=== PATIENT | male | born 1950 | race Caucasian/White ===

== ENCOUNTER → 2016-08-10 | Outpatient (CLI) | payer OTHER ==
--- NOTE | 2016-08-10 10:25 | US ---
Ultrasound of the Abdomen Complete History: Pancreatitis. Abdominal pain. Findings: Gallbladder: No shadowing calculi, wall thickening, or pericholecystic fluid. Common bile duct is 3 m m in diameter which is normal. The gallbladder wall is 1.7 mm Liver: Homogeneous in echogenicity and measures 16.3 cm in length. No definite focal lesions. Renal: Right kidney measures 4.9 x 4.8 x 11.3 cm with a 1.1 cm cortex cm and left kidney 5.1 x 5.2 x 11.7 cm with a 1.7 cm cortex cm without hydronephrosis in either kidney. Multiple cysts are present in the right kidney. A mid cyst measures 4.8 x 3.5 x 4.0 cm. Second mid cy st measures 2.3 x 1.9 x 2.1 cm. A lateral cyst measures 1.1 x 0.9 x 1.0 cm. In the left kidney there is a perinephric cyst measuring 1.5 x 1.3 x 1.1 cm. Spleen: Homogeneous and 3.6 x 8.7 x 10.9 cm cm in length without splenomegaly. Pancreas: Homogeneous without peripancreatic fluid. Aorta: Visualized upper abdominal aorta demonstrates no aneurysm. 20 to 15 mm with some atherosclerot ic disease IVC: Grossly patent. Impression: 1. Poor visualization of the pancreas due to overlying bowel gas. 2. Atherosclerosis of the aorta without evidence of aneurysm. 3. incidental benign renal cysts.
== END ==
LOC: CIMAGING 08:37
PROVIDERS: ATTEND Physician Assistant Medical
DX: R11.2 Nausea with vomiting, unspecified (principal); R10.9 Unspecified abdominal pain; I70.0 Atherosclerosis of aorta; N28.1 Cyst of kidney, acquired
CPT/HCPCS: 76700-PO

== ENCOUNTER → 2016-08-16 | Outpatient (CLI) | payer OTHER ==
[~2016-08-16] MED LIST: IOPAMIDOL (ISOVUE 370) 100 ML BTL IV ONE
--- NOTE | 2016-08-16 16:12 | CT ---
CT Scan of the Abdomen, Without and With Contrast Enhancement History: Epigastric abdominal pain. Technique: Axial computed tomographic images of the abdomen were obtained prior to and during the une ventful intravenous administration of 90 mL Isovue-300 contrast. Additional oral contrast. Dose red uction techniques were utilized. CT Abdomen, Without Contrast, Findings: In the upper pole right kidney, there is a calyceal 7-mm omar cification on image #82 of series #3, without hydronephrosis. No left nephrolithiasis. Surgical cli ps in the right upper quadrant of the abdomen and involving the body of the stomach probably represen ting partial gastrectomy in the antrum region. CT Abdomen, With Contrast, Findings Lung bases: No pleural effusion. Mild cardiomegaly. Clips surrounding the distal esophagus, withou t hiatal hernia. Liver: No hepatic masses or hepatomegaly. Biliary system: No obstruction. Spleen: Normal. Pancreas: Multiple pancreatic calcifications probably from chronic pancreatitis. No definite focal pancreatic mass or peripancreatic fluid. No pancreatic ductal dilation. Peripancreatic lymph node, measuring 2.2 x 1 cm, on image #73 of series #5. Atrophy of the pancreatic head, without discrete ma ss. Adrenals: Normal. Kidneys: Bilateral renal cysts identified, with the largest in the posterior cortex of the right kid kole interpolar region, measuring 5 cm.. Abdominal Aorta: Moderate atherosclerotic abdominal aorta and iliac artery calcifications, without a neurysm. AP diameter of the infrarenal abdominal aorta is 2.5 cm. Oral contrast in the small bowel and colon, without bowel obstruction. Pelvis not imaged. Ileocecal region appears normal. Appendix is not identified. Multilevel moderate degenerative disk disease lumbar spine. L3-L4: Disk bulge and bilateral facet a rthropathy resulting in severe central canal stenosis. L4-L5: Large central disk herniation, extrus ion, causing severe stenosis. Impressions 1. Prior gastric surgery, with partial gastric resection. No gastric outlet obstruction, small vadim l obstruction, or colonic obstruction. No evidence of inflammatory bowel disease in the mid to upper abdomen. 2. Pancreatic calcifications consistent with chronic pancreatitis, with atrophic pancreatic head but no discrete mass. 3. No hepatosplenomegaly, ascites, or hepatic masses. 4. Nonobstructive right nephrolithiasis, with bilateral renal cysts. 5. Atherosclerotic aorta, without aneurysm. Cosigned: Kalin Ward M.D.
== END ==
LOC: CIMAGING 14:10
PROVIDERS: ATTEND Internal Medicine Gastroenterology
DX: K86.89 Other specified diseases of pancreas (principal); I70.0 Atherosclerosis of aorta; Z98.84 Bariatric surgery status
CPT/HCPCS: 74170; Q9967

== ENCOUNTER → 2016-09-15 | Outpatient (CLI) | payer OTHER | LOC: BHFA 11:15 | PROVIDERS: ATTEND Internal Medicine Cardiovascular Disease | DX: I25.810 Atherosclerosis of coronary artery bypass graft(s) without angina pectoris (principal); I10 Essential (primary) hypertension; E78.5 Hyperlipidemia, unspecified; E11.9 Type 2 diabetes mellitus without complications ==

== ENCOUNTER → 2016-09-17 | Outpatient (CLI) | payer OTHER | LOC: BHFA 13:00 | PROVIDERS: ATTEND Internal Medicine Cardiovascular Disease | DX: I25.10 Atherosclerotic heart disease of native coronary artery without angina pectoris (principal) | CPT/HCPCS: 78452; 93017; A9500 ==

== ENCOUNTER 2016-09-27 11:28 | Observation (INO) | payer OTHER ==
[2016-09-27] MEDS ORDERED: NS 1,000 ML IV ONE (11:33)
[2016-09-27] MEDS ORDERED: FAMOTIDINE 20 MG TAB PO ONE (11:33)
[2016-09-27] MEDS ORDERED: DIAZEPAM 5 MG TAB PO ONE (11:33)
[2016-09-27] MEDS ORDERED: ASPIRIN EC 325 MG TAB PO ONE (11:33)
[2016-09-27] MEDS ORDERED: diphenhydrAMINE 25 MG CAP PO ONE (11:33)
--- NOTE | 2016-09-27 12:01 | CPEKG ---
Heart Rate: 49 RR Interval: 1224 P-R Interval: 236 QRSD Interval: 86 QT Interval: 464 QTC Interval: 419 P [place]: -9 QRS [place]: 28 T Wave [place]: 99 EKG Severity - ABNORMAL ECG - EKG Impression: SINUS BRADYCARDIA EKG Impression: FIRST DEGREE AV BLOCK EKG Impression: NONSPECIFIC T ABNORMALITIES, LATERAL LEADS Preliminary Awaiting MD Review
[2016-09-27 12:15] LABS: % IMMATURE GRANULYOCYTES 0.2 % (0.0-1.1); ABSOLUTE IMMATURE GRANULOCYTES 0.02 10^3/uL (0.00-0.10); ADD DIFF? NO; ADD MORPH? NO; ADD SCAN? NO; ATYPICAL LYMPHOCYTE FLAG 10 (0-99); FRAGMENT RBC FLAG 20 (0-99); HEMATOCRIT 36.5 % (40.0-51.0); HEMOGLOBIN 11.6 g/dL (13.7-17.5); LEFT SHIFT FLG 0 (0-99); LIPEMIA HEMOLYSIS FLAG 80 (0-99); MEAN CELL HEMOGLOBIN 25.4 pg (27.9-34.1); MEAN CELL HEMOGLOBIN CONCENTR. 31.8 g/dL (32.4-36.7); MEAN PLATELET VOLUME 9.7 fL (8.7-11.7); PLATELET CLUMPS FLAG 0 (0-99); PLATELET COUNT 208 10^3/uL (150-400); RED BLOOD CELL COUNT 4.56 10^6/uL (4.40-6.38); RED CELL DISTRIBUTION WIDTH 16.6 % (11.5-15.2)
[2016-09-27 12:30] LABS: INR 1.03 (0.83-1.16); PROTIME(PATIENT) 13.4 SEC (12.0-15.0)
[2016-09-27 12:36] LABS: ANION GAP 10 mEq/L (8-16); CALCIUM 9.4 mg/dL (8.5-10.4); CARBON DIOXIDE 24 mEq/l (22-31); CHLORIDE 106 mEq/L (97-110); CHOLESTEROL 176 mg/dL (140-220); CHOLESTEROL/HDL RATIO 3.83 RATIO (1.00-4.97); CREATININE 0.7 mg/dL (0.7-1.3); GLOMERULAR FILTRATION RATE > 60; GLUCOSE 121 mg/dL (70-100); HIGH DENSITY LIPOPROTEIN 46 mg/dL (40-65); LDL/HDL RATIO 2.17 RATIO (1.00-3.64); LOW DENSITY LIPOPROTEIN 100 mg/dL (80-100); MAGNESIUM 1.9 mg/dL (1.6-2.3); NON-HIGH DENSITY LIPOPROTEIN 130 mg/dL (90-129); POTASSIUM 4.7 mEq/L (3.5-5.2); SODIUM 140 mEq/L (134-144); TRIGLYCERIDE 153 mg/dL (40-150); VERY LOW DENSITY LIPOPROTEINS 30 mg/dL (8-25)
[2016-09-27] MEDS ORDERED: MIDAZOLAM 2 MG/2 ML VIAL ONE ×2 (13:25→14:30)
[2016-09-27] MEDS ORDERED: LIDOCAINE 1% 30 ML SDV ONE (13:25)
[2016-09-27] MEDS ORDERED: fentaNYL 100 MCG/2 ML INJ ONE ×2 (13:25→14:30)
[2016-09-27] MEDS ORDERED: VERAPAMIL 5 MG/2 ML VIAL ONE ×2 (13:26→14:32)
[2016-09-27] MEDS ORDERED: IOPAMIDOL (ISOVUE-370) 150 ML BTL IV ONE ×2 (13:26→18:00)
[2016-09-27] MEDS ORDERED: HEPARIN 10,000 UNIT/10 ML MDV ONE (13:26)
--- NOTE | 2016-09-27 15:11 | PDDXCAT ---
Diagnostic Cath Note - . Date: 09/27/16 Bobbin Sorter: Ayanna Indication: other (Preoperative assessment prior to colon surgery.) High-risk criteria on non-invasive testing: stress-induced moderate-size multiple perfusion defects - Procedure Access: right groin Procedure: left heart catheterization, coronary angiography, left ventriculogram - Materials Left Heart Cath materials: standard multipack (JL4, JR4, pigtail), NATASHA, other ( RCB) - Findings-Left Heart Catheterization LM: The left main is a large caliber vessel. There is appropriate bifurcation into the left anterior descending and circumflex distributions. The left main is heavily calcified. There is distal stenosis of 30%. LAD: The left anterior descending is small and diffusely disease. The vessel is occluded after the 1st septal ct tech and grafted from the right internal mammary artery. The distal LAD filling from the right internal mammary artery is widely patent with no obstructions however small caliber and diffusely diseased. LCX: The circumflex is small in caliber and diffusely disease. There are 2 small obtuse marginal branches. The 1st obtuse marginal branch is grafted from the left internal mammary artery. Retrograde opacification of the MURPHY is appreciated. The proximal portion of the circumflex is diseased up to 80% in a long diffuse segment. Injection of the left internal mammary artery fills the obtuse marginal branch retrograde. RCA: The right coronary artery is proximally occluded. This vessel is grafted with a saphenous vein graft. Injection of the saphenous vein graft fills the right coronary artery via the PDA retrograde to the point of occlusion. This demonstrates a large right coronary artery territory. rSVG: There is a saphenous vein graft to the right coronary artery. This vessel is large in caliber and patent with no obstructive lesions. The distal anastomosis into the PDA with retrograde filling of the [place] right back to the point of occlusion in the proximal vessel. There is also a saphenous vein graft which is a skip graft between the 1st 2 diagonal branches. This vessel is widely patent with no obstructive lesions. There is no significant retrograde opacification of the LAD via either of these diagonal branches. MURPHY: The left internal mammary artery is grafted into the obtuse marginal branch. This vessel is widely patent throughout its course. SAM: The right internal mammary artery is grafted into the mid LAD. This vessel is widely patent throughout its course. There is a stent in the distal segment. The stent is widely patent. The distal LAD is small in caliber and diffusely diseased. EDP: 23 mmHg. LVEF: The left ventricular ejection fraction is 60-65%. There are no focal wall motion abnormalities. - Findings-Right Heart Catheterization AO: 151/74/107 mmHg. Complications: None. Estimated blood loss: <50ml Closure method: manual pressure Assessment: 1. Severe [place] coronary artery disease as described above. 2. Patent left internal mammary artery graft to the obtuse marginal, right internal mammary artery graft to the middle LAD, SVG to the right coronary artery (PDA) and an SVG to the 1st and 2nd diagonal branches. The patient previously had a stent in the distal portion of the MURPHY to the LAD that is currently widely patent. 3. Preserved left ventricular systolic function without significant wall motion abnormalities. 4. No identified significant valvular heart disease. 5. Mildly elevated end-diastolic pressure. Plan: Medical management. Intervention: None.
[2016-09-27] MEDS ORDERED: ATROPINE SULFATE 1 MG/10 ML SYR ONE (16:11)
[2016-09-27] MEDS ORDERED: ONDANSETRON 4 MG/2 ML VIAL IVP PRN (18:06)
[2016-09-27] MEDS ORDERED: ATROPINE SULFATE 1 MG/10 ML SYR IVP PRN (18:06)
[2016-09-27] MEDS ORDERED: HYDROCODONE/APAP 5/325 TAB PO PRN (18:06)
[2016-09-27] MEDS ORDERED: NITROGLYCERIN 0.4 MG BTL SL PRN (18:06)
[2016-09-27] MEDS ORDERED: OXYCODONE/APAP 5/325 TAB PO PRN (18:52)
[2016-09-27 19:39] VITALS: BP 163/94; PULSE 52; RESP 18; TEMP 98.7; O2SAT 97
[2016-09-27] MEDS ORDERED: morphINE SR 15 MG TAB PO SCH (20:00)
== END 2016-09-27 22:17 | disposition home or self-care (01) ==
LOC: FCATH 11:28 → F2W 15:27
PROVIDERS: ADMIT Internal Medicine Cardiovascular Disease; ATTEND Internal Medicine Cardiovascular Disease
PROC: B2151ZZ Fluoroscopy of Left Heart using Low Osmolar Contrast (ICD-10-PCS; principal; 2016-09-27)
PROC: B21F1ZZ Fluoroscopy of Other Bypass Graft using Low Osmolar Contrast (ICD-10-PCS; principal; 2016-09-27)
PROC: B2171ZZ Fluoroscopy of Right Internal Mammary Bypass Graft using Low Osmolar Contrast (ICD-10-PCS; principal; 2016-09-27)
PROC: 4A023N7 Measurement of Cardiac Sampling and Pressure, Left Heart, Percutaneous Approach (ICD-10-PCS; principal; 2016-09-27)
PROC: B2181ZZ Fluoroscopy of Left Internal Mammary Bypass Graft using Low Osmolar Contrast (ICD-10-PCS; principal; 2016-09-27)
PROC: B2111ZZ Fluoroscopy of Multiple Coronary Arteries using Low Osmolar Contrast (ICD-10-PCS; principal; 2016-09-27)
DX: Z01.810 Encounter for preprocedural cardiovascular examination (principal); K63.9 Disease of intestine, unspecified; I25.10 Atherosclerotic heart disease of native coronary artery without angina pectoris; I10 Essential (primary) hypertension; E78.5 Hyperlipidemia, unspecified; E11.9 Type 2 diabetes mellitus without complications; Z95.1 Presence of aortocoronary bypass graft; Z95.5 Presence of coronary angioplasty implant and graft
CPT/HCPCS: 71020; 93005; 93459; C1769; J1644; J2250; J3010; Q9967; J0461

== ENCOUNTER 2016-10-21 04:50 | Inpatient (IN) | payer OTHER ==
[2016-10-21] MEDS ORDERED: cefOXitin SODIUM 1 GM in D5W 50 ML IV ONE (06:00)
[2016-10-21] MEDS ORDERED: LR 1,000 ML IV ONE (06:18)
[2016-10-21 06:28] LABS: INR 0.99 (0.83-1.16)
[2016-10-21] MEDS ORDERED: BUPIVACAINE 0.5% 30 ML SDV ONE (06:41)
[2016-10-21] MEDS ORDERED: HEPARIN 1000 UNIT/1 ML MDV ONE ×2 (06:41→06:50)
[2016-10-21] MEDS ORDERED: ceFAZolin 1 GM/5 ML SYR ONE (06:42)
[2016-10-21] MEDS ORDERED: LIDOCAINE 1% 5 ML SDV ID PRN (06:46)
[2016-10-21] MEDS ORDERED: METOPROLOL TARTRATE 25 MG TAB PO ONE (07:00)
[2016-10-21] MEDS ORDERED: NALOXONE HCL 0.4 MG/ML INJ IVP PRN (07:17)
[2016-10-21] MEDS ORDERED: MIDAZOLAM 2 MG/2 ML VIAL ONE (07:18)
[2016-10-21] MEDS ORDERED: fentaNYL 250 MCG/5 ML INJ ONE ×2 (07:32→07:51)
[2016-10-21] MEDS ORDERED: PROPOFOL 200 MG/20 ML VIAL ONE (07:34)
[2016-10-21] MEDS ORDERED: PROPOFOL/EMULSION 500 MG/50 ML BOTTLE IV ONE (07:34)
[2016-10-21] MEDS ORDERED: LIDOCAINE 2% 5 ML SDV ONE (07:59)
[2016-10-21] MEDS ORDERED: ROCURONIUM 100 MG/10 ML VIAL ONE (07:59)
[2016-10-21] MEDS ORDERED: PHENYLEPHRINE HCL 100 MCG/ML SYR ONE (07:59)
[2016-10-21] MEDS ORDERED: DEXAMETHASONE 4 MG/ML VIAL ONE (08:09)
[2016-10-21] MEDS ORDERED: GLYCOPYRROLATE 0.2 MG/1 ML VIAL ONE (08:09)
[2016-10-21] MEDS ORDERED: ONDANSETRON 4 MG/2 ML VIAL ONE (09:11)
[2016-10-21] MEDS ORDERED: HYDROmorphONE/DILAUDID 1 MG/ML SYR ONE ×2 (09:41→10:31)
--- NOTE | 2016-10-21 09:45 | POSTOPPROG ---
Post Op Note Date of Operation: 10/21/16 Surgeon: Joe Warren Instrumental Music Teacher: Austin Thakkar PA-C, DAE Deleon MS, Maulik Gomez MS Anesthesiologist: Christiano JAIMES Anesthesia: GET(General Endotracheal) Pre-op Diagnosis: adenoma in ascending colon Post-op Diagnosis: same Indication: suspicious polyp Procedure: lap right hemicolectomy Findings: polyp in ascending colon Inf/Abcess present in the surg proc area at time of surgery?: No EBL: Minimal Complications: none Specimen(s): segment of colon (fresh) to path
[2016-10-21] MEDS ORDERED: NON-FORMULARY NEW DRUG (Atorvastatin Calcium [Lipitor 80 Mg] 80 MG) PO SCH (11:15)
[2016-10-21] MEDS ORDERED: D50W 25 GM/50 ML SYR IVP PRN (11:18)
[2016-10-21] MEDS: morphINE PCA 30 MG/30 ML PCA IV PRN ×2 (11:31→20:17)
[2016-10-21] MEDS: morphINE SR 15 MG TAB PO SCH ×2 (12:14→23:55)
[2016-10-21] MEDS: cefOXitin SODIUM 1 GM in D5W 50 ML IV SCH ×3 (12:21→23:55)
[2016-10-21] MEDS: ONDANSETRON 4 MG/2 ML VIAL IVP PRN ×2 (15:15→19:31)
[2016-10-21] MEDS ORDERED: NON-FORMULARY NEW DRUG (Ropinirole Hcl [Requip 0.5mg] 0.5 MG) PO SCH (21:00)
[2016-10-21] MEDS: NS 1,000 ML IV SCH (21:22)
[2016-10-22] MEDS: cefOXitin SODIUM 1 GM in D5W 50 ML IV SCH (05:16)
[2016-10-22 05:27] LABS: % IMMATURE GRANULYOCYTES 0.3 % (0.0-1.1); ABSOLUTE IMMATURE GRANULOCYTES 0.03 10^3/uL (0.00-0.10); ADD DIFF? NO; ADD MORPH? NO; ADD SCAN? NO; ATYPICAL LYMPHOCYTE FLAG 0 (0-99); FRAGMENT RBC FLAG 0 (0-99); HEMATOCRIT 28.9 % (40.0-51.0); HEMOGLOBIN 9.1 g/dL (13.7-17.5); LEFT SHIFT FLG 0 (0-99); LIPEMIA HEMOLYSIS FLAG 80 (0-99); MEAN CELL HEMOGLOBIN 25.2 pg (27.9-34.1); MEAN CELL HEMOGLOBIN CONCENTR. 31.5 g/dL (32.4-36.7); MEAN CELL VOLUME 80.1 fL (81.5-99.8); MEAN PLATELET VOLUME 10.8 fL (8.7-11.7); PLATELET CLUMPS FLAG 0 (0-99); PLATELET COUNT 176 10^3/uL (150-400); RED BLOOD CELL COUNT 3.61 10^6/uL (4.40-6.38); RED CELL DISTRIBUTION WIDTH 16.2 % (11.5-15.2)
[2016-10-22 05:33] LABS: CALCIUM 8.3 mg/dL (8.5-10.4); CARBON DIOXIDE 23 mEq/l (22-31); CHLORIDE 107 mEq/L (97-110); CREATININE 0.7 mg/dL (0.7-1.3); GLOMERULAR FILTRATION RATE > 60; GLUCOSE 102 mg/dL (70-100); SODIUM 138 mEq/L (134-144)
[2016-10-22 06:14] LABS: ANION GAP 8 mEq/L (8-16); POTASSIUM 4.6 mEq/L (3.5-5.2)
[2016-10-22] MEDS: ONDANSETRON 4 MG/2 ML VIAL IVP PRN (06:39)
[2016-10-22] MEDS: morphINE PCA 30 MG/30 ML PCA IV PRN (07:46)
[2016-10-22] MEDS: NS 1,000 ML IV SCH (07:46)
[2016-10-22] MEDS: ATORVASTATIN CALCIUM 40 MG TAB PO SCH (07:51)
[2016-10-22] MEDS: LISINOPRIL 5 MG TAB PO SCH (07:52)
[2016-10-22] MEDS: METOPROLOL TARTRATE 25 MG TAB PO SCH ×2 (07:52→20:45)
[2016-10-22] MEDS: CITALOPRAM 20 MG TAB PO SCH (07:53)
--- NOTE | 2016-10-22 13:25 | SOAPPROG ---
SOAP Progress Note Assessment/Plan: Assessment: 65-year-old male s/p lap right hemicolectomy, POD 1 Pain well controlled. Was able to pass gas this morning. King catheter was removed around 6:00 a.m. Denies fever, nausea, vomiting. PE Awake, alert, comfortable CTA bilaterally RRR Abdomen soft, nondistended ; incision CDI with no signs of infection or drainage Plan: Continue postop wound care. Encourage ambulation. Started on clears this morning. If tolerated, may advance diet to regular diet this afternoon. Anticipate discharge. To follow up with our office in 10 days. 10/22/16 13:15 Objective: Vital Signs Temp Pulse Resp BP Pulse Ox 36.8 C 57 L 16 92/55 L 90 L 10/22/16 11:59 10/22/16 11:59 10/22/16 11:59 10/22/16 11:59 10/22/16 11:59 Laboratory Results 10/22/16 04:31 10/22/16 04:31 10/21/16 10/22/16 10/23/16 05:59 05:59 05:59 Intake Total 3352 Output Total 1485 Balance 1867 PT 13.0 SEC (12.0-15.0) 10/21/16 06:15 INR 0.99 (0.83-1.16) 10/21/16 06:15
[2016-10-22] MEDS: morphINE SR 15 MG TAB PO SCH (14:22)
[2016-10-22] MEDS: oxyCODONE IR 5 MG TAB PO PRN ×2 (16:46→19:02)
[2016-10-22] MEDS: IBUPROFEN 200 MG TAB PO PRN (20:45)
[2016-10-22] MEDS: HYDROmorphONE/DILAUDID 1 MG/ML SYR IVP PRN (21:41)
[2016-10-23] MEDS: morphINE SR 15 MG TAB PO SCH ×3 (00:06→21:28)
[2016-10-23] MEDS: oxyCODONE IR 5 MG TAB PO PRN ×4 (00:09→22:35)
[2016-10-23] MEDS: ACETAMINOPHEN 325 MG TAB PO PRN ×3 (00:10→21:27)
--- NOTE | 2016-10-23 08:28 | SOAPPROG ---
SOAP Progress Note Assessment/Plan: Assessment: doing well status post right hemicolectomy / wound okay/ urine output OK/ afebrile / positive flatus and positive BM Plan: advanced diet 10/23/16 08:25 Objective: Vital Signs Temp Pulse Resp BP Pulse Ox 36.6 C 61 14 114/63 96 10/23/16 07:48 10/23/16 07:48 10/23/16 07:48 10/23/16 07:48 10/23/16 07:48 Laboratory Results 10/22/16 04:31 10/22/16 04:31 10/22/16 10/23/16 10/24/16 05:59 05:59 05:59 Intake Total 3352 740 500 Output Total 1485 900 650 Balance 1867 -160 -150 PT 13.0 SEC (12.0-15.0) 10/21/16 06:15 INR 0.99 (0.83-1.16) 10/21/16 06:15 ICD10 Worksheet Patient Problems: Problems Problem Status Onset Polyp of cecum Acute - ICD10 Problem Qualifiers (1) Polyp of cecum
[2016-10-23] MEDS: HYDROmorphONE/DILAUDID 1 MG/ML SYR IVP PRN ×4 (09:46→21:26)
[2016-10-23] MEDS: ATORVASTATIN CALCIUM 40 MG TAB PO SCH (09:49)
[2016-10-23] MEDS: METOPROLOL TARTRATE 25 MG TAB PO SCH ×2 (09:49→21:28)
[2016-10-23] MEDS: LISINOPRIL 5 MG TAB PO SCH (09:50)
[2016-10-23] MEDS: CITALOPRAM 20 MG TAB PO SCH (09:51)
[2016-10-23] MEDS: IBUPROFEN 200 MG TAB PO PRN ×2 (12:00→21:27)
[2016-10-23] MEDS ORDERED: KETOROLAC 30 MG/1 ML SDV IVP ONE (17:00)
[2016-10-23] MEDS ORDERED: NS 1,000 ML IV ONE (17:00)
--- NOTE | 2016-10-23 19:05 | GOP ---
[f rep st] OPERATIVE REPORT DATE OF OPERATION: 10/21/2016 SURGEON: Joe Warren MD FORMING PRESS OPERATOR: KIMMY Alegria. PREOPERATIVE DIAGNOSIS: POSTOPERATIVE DIAGNOSIS: PROCEDURE PERFORMED: Laparoscopic right hemicolectomy. FINDINGS: Patient was found have a large amount of adhesions from his previous gastrectomy surgery. He had a 4 cm polyp in the cecum with no evidence of any metastatic disease. Final path is pendin g. ESTIMATED BLOOD LOSS: Blood loss was negligible. DESCRIPTION OF PROCEDURE: Patient was taken to the operating room where he received satisfactory ge neral endotracheal anesthesia by Dr. Alvarado. He was placed in the supine position, prepped and drap ed in the usual sterile fashion. A lower abdominal midline incision was made. A lower abdominal in cision was made, a Veress needle inserted. Pneumoperitoneum was established. Trocar was introduced . Laparoscope introduced. Good visualization was obtained. Two other trocars were placed under di rect vision. Adhesions were lysed. The cecum was mobilized by dividing the lateral peritoneal refl ection and up around the splenic flexure until the right colon was more mobile. The terminal ileum was also freed up with the Harmonic Scalpel. The right mesocolon was divided with the Harmonic Scal pel. After adequate mobilization, a periumbilical incision was made using one of the trocar sites. The wound was protected with an Sudheer wound protector, and the right colon was brought out through the incision, which had been extended down through the linea alba. The terminal ileum was divided with a MARVIN stapler, as was the right transverse colon. The mesenteric division was completed with t he Harmonic Scalpel and the specimen was then removed. A [id number] anastomosis was made with a G IA stapler and a cross application of the stapler. The suture lines were reinforced with interrupte d 3-0 silks where necessary. This created a good 3-fingerbreadth anastomosis. The bowel was return ed back into the abdomen and the wound was irrigated. Hemostasis was assured. The abdomen was then closed in layers using a running #1 PDS suture for the linea alba, a 3-0 Vicryl for the subcu, 4-0 Monocryl subcuticular stitch for the skin. The other trocar sites were closed with 4-0 Monocryl as well. All layers were infiltrated with Marcaine. There were no complications. He tolerated proced ure well and was taken to the recovery room in good condition. Copy requested to: /[id number]/BERTRAND
[2016-10-23] MEDS: KETOROLAC 15 MG/1 ML SDV IVP PRN (22:35)
[2016-10-24 07:46] VITALS: BP 122/68; PULSE 57; RESP 14; TEMP 97.7
[2016-10-24] MEDS: morphINE SR 15 MG TAB PO SCH (08:11)
[2016-10-24] MEDS: ATORVASTATIN CALCIUM 40 MG TAB PO SCH (08:11)
[2016-10-24] MEDS: CITALOPRAM 20 MG TAB PO SCH (08:11)
[2016-10-24] MEDS: LISINOPRIL 5 MG TAB PO SCH (08:16)
[2016-10-24] MEDS: METOPROLOL TARTRATE 25 MG TAB PO SCH (08:16)
[2016-10-24] MEDS: oxyCODONE IR 5 MG TAB PO PRN (10:06)
[2016-10-24] MEDS: KETOROLAC 15 MG/1 ML SDV IVP PRN (10:06)
--- NOTE | 2016-10-24 10:16 | SOAPPROG ---
SOAP Progress Note Assessment/Plan: Assessment: s/p right hemicolectomy Doing well Flatus and BM Ready for discharge S: Pain controlled, no n/v. Flatus and BM O: Sitting in chair, appears well CTAB RRR BS present Soft non tender and non distended. Incisions cdi Plan: 10/24/16 10:15 Objective: Vital Signs Temp Pulse Resp BP Pulse Ox 36.5 C 57 L 14 122/68 H 100 10/24/16 07:29 10/24/16 07:29 10/24/16 07:29 10/24/16 07:29 10/24/16 07:29 Laboratory Results 10/22/16 04:31 10/22/16 04:31 10/23/16 10/24/16 10/25/16 05:59 05:59 05:59 Intake Total 740 500 Output Total 900 1750 475 Balance -160 -1250 -475 PT 13.0 SEC (12.0-15.0) 10/21/16 06:15 INR 0.99 (0.83-1.16) 10/21/16 06:15 ICD10 Worksheet Patient Problems: Problems Problem Status Onset Polyp of cecum Acute
--- NOTE | 2016-10-24 10:31 | PDIAF ---
- Diagnosis Diagnosis: s/p right hemicolectomy Code Status: Full Code - Medication Management Discharge Medications: Medications to Continue on Transfer Atorvastatin Calcium [Lipitor 80 mg] 80 mg PO DAILY 01/16/13 [Last Taken ] Citalopram [celeXA 20 MG (RX)] 20 mg PO DAILY 01/16/13 [Last Taken 10/15/16] Hydrocodone/Acetaminophen [Supai 7.5-325 Tablet] 1 tab PO Q4 PRN 01/16/13 [Last Taken 10/15/16] Metoprolol Tartrate [Lopressor 25 mg (*)] 25 mg PO BID 01/16/13 [Last Taken ] Aspirin [Aspirin 325 mg (*)] 325 mg PO DAILY 09/27/16 [Last Taken 10/15/16] Linagliptin [Tradjenta] 5 mg PO DAILY 09/27/16 [Last Taken 10/15/16] Lipase/Protease/Amylase [Eduarda Mason 36,000 Units Capsule] 1 each PO TIDMEAL [Last Taken 10/18/16] Metformin HCl [Metformin 1000 mg] 1,000 mg PO BIDMEAL 09/27/16 [Last Taken 10/18] Ondansetron Odt [Zofran Odt 4 mg (*)] 4 mg PO Q6H PRN 09/27/16 [Last Taken 10/14] morphINE SR [Ms Contin/Oramorph 15 mg (*)] 15 mg PO Q12H 09/27/16 [Last Taken ] Lisinopril [Zestril 5 mg (*)] 2.5 mg PO DAILY 10/13/16 [Last Taken 10/15/16] Ropinirole HCl [Requip 0.5mg] 0.5 mg PO HS 10/13/16 [Last Taken 10/15/16] Acetaminophen [Tylenol 325mg (*)] 325 - 650 mg PO Q4HRS PRN #0 tab 10/24/16 [ Last Taken Unknown] Ibuprofen [Motrin (*)] 400 - 800 mg PO Q4HRS PRN #0 tab 10/24/16 [Last Taken Unknown] oxyCODONE IR [Oxycodone Ir (*)] 5 mg PO Q3HRS PRN #40 tab 10/24/16 [Last Taken Unknown] Discharge Medications: Refer to the Discharge Home Medication list for PRN reason. - Orders Services needed: Registered Nurse, Physical Therapy, Occupational Therapy Home Care Face to Face: I saw Alden Taylor on 10/24/2016 and he requires in home PT,OT and RN Diet Recommendation: low fiber Wound Care Instructions: may shower without covering wounds. Dr. Warren or one of his PAs will see him in 1 week - Follow Up Care Current Providers and Referrals: Joe Warren MD [Medical Doctor] - follow up in 1 week Diallo Ng DO [Primary Care Provider] -
[2016-10-24 10:37] VITALS: O2SAT 92
[2016-10-24] MEDS: ACETAMINOPHEN 325 MG TAB PO PRN (11:30)
--- NOTE | 2016-10-25 21:27 | GDS ---
[f rep st] DISCHARGE SUMMARY REASON FOR ADMISSION: Elective surgery for a colon mass. HOSPITAL COURSE: The patient is a very pleasant 65-year-old male who was noted to have a right colo n mass upon screening colonoscopy. The patient underwent right hemicolectomy with Dr. Warren on 09/24. His hospital course was fairly unremarkable, as he regained bowel function fairly quickly, and was discharged on 10/24/2016. Pathology is still pending from that surgery at the time of this dictation. Patient instructed to follow up in our office in 10 days. No heavy lifting, okay to shower. /[id number]/MODL
== END 2016-10-24 12:06 | disposition home health service (06) | DRG 331 ==
LOC: F3E 04:50
PROVIDERS: ADMIT Surgery; ATTEND Surgery
PROC: 0DBK4ZX Excision of Ascending Colon, Percutaneous Endoscopic Approach, Diagnostic (ICD-10-PCS; principal; 2016-10-21 07:15)
PROC: 0DTC4ZZ Resection of Ileocecal Valve, Percutaneous Endoscopic Approach (ICD-10-PCS; principal; 2016-10-21 07:15)
PROC: 0DBB4ZX Excision of Ileum, Percutaneous Endoscopic Approach, Diagnostic (ICD-10-PCS; principal; 2016-10-21 07:15)
PROC: 0DTH4ZZ Resection of Cecum, Percutaneous Endoscopic Approach (ICD-10-PCS; principal; 2016-10-21 07:15)
DX: D12.0 Benign neoplasm of cecum (principal); I25.10 Atherosclerotic heart disease of native coronary artery without angina pectoris; I10 Essential (primary) hypertension; E11.9 Type 2 diabetes mellitus without complications; E78.5 Hyperlipidemia, unspecified; Z95.1 Presence of aortocoronary bypass graft; Z95.5 Presence of coronary angioplasty implant and graft
CPT/HCPCS: J0697; J1100; J1170; J1885; J2250; J2270; J2370; J2405; J2704; J3010

== ENCOUNTER 2018-02-15 09:11 | Inpatient (IN) | payer OTHER ==
--- NOTE | 2018-02-15 09:42 | EDPHY ---
General - History Smoking Status: Former smoker Time Seen by Provider: 02/15/18 09:38 Narrative: CHIEF COMPLAINT: Back pain, foot pain HISTORY OF PRESENT ILLNESS: Patient presents with complaints of increasing low back pain and significant pain in the dorsum of the right foot. He was admitted here on February 09 for the same, where he underwent pain medications, epidural steroid injections. Discharged on Tuesday doing well until yesterday. His pain began to increase as did the tingling in the right foot. He now has severe, 10/10 pain in the back and in the top of the right foot. He is unable to ambulate from this. He feels weak in the right leg. He has no incontinence of bowel or bladder. No retention of bowel or bladder. No fever. No signs of infection of the low back skin. No headache, neck pain, chest pain or shortness of breath. He has been seen by Neurosurgery here in as an appointment next Tuesday with neurosurgery KIMMY. No other associated complaints or modifying factors REVIEW OF SYSTEMS: Ten systems reviewed and are negative unless otherwise noted in the HPI PAST MEDICAL HISTORY: Coronary artery disease, hypertension, lumbar degenerative disc disease and stenosis PAST SURGICAL HISTORY: Lumbar washout, CABG, stent placement, left shoulder rotator cuff repair SOCIAL HISTORY: Nonsmoker. Lives independently with his spouse. FAMILY HISTORY: Noncontributory EXAMINATION General Appearance: Alert, no distress. Appears to be uncomfortable but in no acute distress HEENT: Normocephalic. Atraumatic pupils equal round reactive. Airway patent. Neck: Supple nontender without meningismus per Cardiovascular: Symmetric radial pulses 2+. Symmetric DP PT pulses 2+. Back: Normal appearance. There is no crepitus or deformity. There is significant tenderness of the lumbar spine musculature and centrally. Neurological: GCS 15. A&O, light sensory is symmetric in the thighs, lateral catheterization, posterior calf, plantar surface of the feet. Hyperesthesia of the dorsum of the right foot. No foot drop on the right lower extremity Skin: Warm and dry, no rash no petechiae or purpura. No cellulitis or fluctuance on the lumbar skin. Extremities: Tenderness out of proportion to palpation of the dorsum of the right foot. Unable to perform full range of motion of the right ankle due to pain. Range of motion of the hips and knees symmetric. DIFFERENTIAL DIAGNOSES: Including but not limited to lumbar stenosis, lumbar radiculopathy, disc bulge, disc herniation, diskitis, myelitis MDM: 9:45 a.m. Intractable low back pain with right foot paresthesia and hyperesthesia of the dorsum of the foot. Patient's pain is severe enough that he has difficulty ambulating due to pain and reported weakness. Unable to perform full strength testing in the lower extremity due to significant pain in the dorsum of the foot. Patellar reflexes are symmetric. He is afebrile well-appearing otherwise. I discussed with Dr. Jin and will consult Neurosurgery. 10:10 a.m. Case discussed with neurosurgery PA Blayne aMnriquez. He will discuss the case with Dr. Staley 10:20 a.m. Case discussed again with neurosurgery PA. He recommends admission the hospital for pain control they will consult on the patient. 10:40 a.m. Case discussed with hospitalist Lexi Adkins. Patient be admitted to Dr. Christensen. Admitted stable condition. She is requesting baseline laboratory studies and sed rate 11:40 a.m. CBC does reveal mild leukocytosis. Clinically I do not feel the patient has any evidence of diskitis this was considered. He has been admitted in stable condition with pain improving with recurrent pain medications here. SUPERVISION: Patient was independently examined, but I discussed the case with my secondary supervising physician Dr. Jin ([facility]) Medical Decision Making: PHYSICIAN DOCUMENTATION: The patient was evaluated and managed by the Physician Lunchroom Operator. My co- signature indicates that I have reviewed this chart and I agree with the findings and plan of care as documented. I am the secondary supervising physician. (German Jin) - Objective Vital Signs: Initial Vital Signs Temperature (C) 36.9 C 02/15/18 09:34 Heart Rate 59 L 02/15/18 09:34 Respiratory Rate 18 02/15/18 09:34 Blood Pressure 126/97 H 02/15/18 09:34 O2 Sat (%) 96 02/15/18 09:34 O2 Delivery Mode Room Air Allergies/Adverse Reactions: codeine [Codeine] Allergy (Mild, Verified 02/08/18 10:57) Vomiting diphenhydramine HCl [From Benadryl] Allergy (Mild, Verified 02/08/18 10:57) Other-Enter Comments Home Medications: Medication Instructions Recorded Atorvastatin Calcium [Lipitor 80 80 mg PO DAILY 01/16/13 mg] Hydrocodone/Acetaminophen [Chandler 1 tab PO Q6HRS PRN 01/16/13 7.5-325 Tablet] Aspirin [Aspirin 325 mg (*)] 325 mg PO DAILY 09/27/16 Linagliptin [Tradjenta] 5 mg PO DAILY 09/27/16 Metformin HCl [Metformin 1000 mg] 1,000 mg PO BIDMEAL 09/27/16 morphINE SR [Ms Contin/Oramorph 15 15 mg PO Q12H 09/27/16 mg (*)] Lisinopril [Zestril 5 mg (*)] 5 mg PO DAILY 10/13/16 Ropinirole HCl [Requip 0.5mg] 1 mg PO HS 10/13/16 Citalopram Hydrobromide [Celexa] 40 mg PO DAILY 02/08/18 Empagliflozin [Jardiance] 10 mg PO DAILY 02/08/18 Pregabalin [Lyrica 75mg (*)] 75 mg PO BID 02/08/18 Gabapentin [Neurontin 300 MG (*)] 300 mg PO TID #30 cap 02/12/18 Metoprolol Tartrate [Lopressor 25 25 mg PO BID 02/15/18 mg (*)] Sennosides/Docusate Sodium 1 - 2 tab PO BID PRN 02/15/18 [Senokot-S] Laboratory Results: Laboratory Results 02/15/18 10:11 02/15/18 10:11 02/15/18 02/15/18 02/15/18 10:11 10:11 10:11 WBC 11.95 10^3/uL H 10^3/uL (3.80-9.50) RBC 5.07 10^6/uL 10^6/uL (4.40-6.38) Hgb 14.3 g/dL g/dL (13.7-17.5) Hct 43.6 % % (40.0-51.0) MCV 86.0 fL fL (81.5-99.8) MCH 28.2 pg pg (27.9-34.1) MCHC 32.8 g/dL g/dL (32.4-36.7) RDW 13.4 % % (11.5-15.2) Plt Count 220 10^3/uL 10^3/uL (150-400) MPV 10.3 fL fL (8.7-11.7) Neut % (Auto) 71.9 % % (39.3-74.2) Lymph % (Auto) 16.9 % % (15.0-45.0) [place] % (Auto) 7.5 % % (4.5-13.0) Eos % (Auto) 0.8 % % (0.6-7.6) Baso % (Auto) 0.4 % % (0.3-1.7) Nucleat RBC Rel Count 0.0 % % (0.0-0.2) Absolute Neuts (auto) 8.58 10^3/uL H 10^3/uL (1.70-6.50) Absolute Lymphs (auto) 2.02 10^3/uL 10^3/uL (1.00-3.00) Absolute Monos (auto) 0.90 10^3/uL H 10^3/uL (0.30-0.80) Absolute Eos (auto) 0.10 10^3/uL 10^3/uL (0.03-0.40) Absolute Basos (auto) 0.05 10^3/uL 10^3/uL (0.02-0.10) Absolute Nucleated RBC 0.00 10^3/uL 10^3/uL (0-0.01) Immature Gran % 2.5 % H % (0.0-1.1) Immature Gran # 0.30 10^3/uL H 10^3/uL (0.00-0.10) ESR 4 MM/HR MM/HR (0-20) PT 13.2 SEC SEC (12.0-15.0) INR 0.98 (0.83-1.16) APTT 29.4 SEC SEC (23.0-38.0) Sodium 140 mEq/L mEq/L (135-145) Potassium 4.7 mEq/L mEq/L (3.3-5.0) Chloride 104 mEq/L mEq/L (97-110) Carbon Dioxide 27 mEq/l mEq/l (22-31) Anion Gap 9 mEq/L mEq/L (8-16) BUN 21 mg/dL mg/dL (7-23) Creatinine 0.8 mg/dL mg/dL (0.7-1.3) Estimated GFR > 60 Glucose 106 mg/dL H mg/dL (70-100) Calcium 9.7 mg/dL mg/dL (8.5-10.4) Medications Given: Discontinued Medications Hydromorphone HCl (Dilaudid) 0.5 mg IVP EDNOW ONE Stop: 02/15/18 10:45 Last Admin: 02/15/18 10:52 Dose: 0.5 mg Hydromorphone HCl (Dilaudid) 1 mg IVP EDNOW ONE Stop: 02/15/18 12:22 Last Admin: 02/15/18 12:25 Dose: 1 mg Sodium Chloride (Ns) 1,000 mls @ 0 mls/hr IV EDNOW ONE; Wide Open PRN Reason: Protocol Stop: 02/15/18 09:51 Last Admin: 02/15/18 10:09 Dose: 1,000 mls Morphine Sulfate (Morphine) 6 mg IVP EDNOW ONE Stop: 02/15/18 09:51 Last Admin: 02/15/18 10:10 Dose: 6 mg Departure - Departure Disposition: [facility] Inpatient Acute Clinical Impression: Intractable low back pain, Herniation of lumbar intervertebral disc with radiculopathy Lumbar stenosis Qualifiers: Neurogenic claudication status: unspecified Qualified Code(s): M48.061 - Spinal stenosis, lumbar region without neurogenic claudication Condition: Good
[2018-02-15] MEDS ORDERED: NS 1,000 ML IV ONE (09:50)
[2018-02-15] MEDS ORDERED: HYDROmorphONE/DILAUDID 2 MG/ML INJ IVP ONE (10:44)
[2018-02-15 10:47] LABS: PLATELET COUNT 220 10^3/uL (150-400)
[2018-02-15 10:55] LABS: INR 0.98 (0.83-1.16); PROTIME(PATIENT) 13.2 SEC (12.0-15.0)
[2018-02-15] MEDS ORDERED: HYDROmorphONE/DILAUDID 1 MG/ML INJ IVP ONE (12:21)
[2018-02-15] MEDS ORDERED: ONDANSETRON DISINTEGRATING 4 MG TAB PO PRN (13:55)
[2018-02-15] MEDS ORDERED: ACETAMINOPHEN 325 MG TAB PO PRN (13:55)
[2018-02-15] MEDS ORDERED: ONDANSETRON 4 MG/2 ML VIAL IVP PRN (13:55)
[2018-02-15] MEDS ORDERED: D50W 25 GM/50 ML SYR IVP PRN (14:06)
[2018-02-15] MEDS: oxyCODONE IR 5 MG TAB PO PRN ×3 (14:20→22:48)
[2018-02-15] MEDS: GABAPENTIN 300 MG CAP PO SCH ×3 (14:21→21:33)
[2018-02-15] MEDS: DIAZEPAM 5 MG TAB PO PRN ×2 (14:21→21:42)
[2018-02-15] MEDS: morphINE SR 15 MG TAB PO SCH (14:22)
--- NOTE | 2018-02-15 14:56 | GHP ---
[f rep st] HISTORY AND PHYSICAL DATE OF ADMISSION: 02/15/2018 HISTORY OF PRESENT ILLNESS: Patient is a 67-year-old gentleman with a history of coronary artery dis ease and low back pain. He was recently hospitalized including an L4-L5 disk protrusion with central canal stenosis and neuroforaminal narrowing. He was seen here, admitted and discharged on the . He underwent an epidural steroid injection and nerve block with apparent initial good outcome. He returns with ongoing pain. He has not had bowel or bladder incontinence. He has pain on his right l ateral leg. He has burning pain on the dorsum of his foot. He has not had fever or chills. He does not use injection drugs. He has not had chest pain or other anginal-type symptoms. He had a coronary bypass more than 10 year s ago. He says he is really not able to bend over or stoop without significant pain. REVIEW OF SYSTEMS: Complete 10-point review of systems conducted, negative except as noted in the HP I. PAST MEDICAL HISTORY: 1. Coronary artery bypass in 2006. 2. History of diskitis with washout that was secondary to Staphylococcus aureus. 3. Hyperlipidemia. 4. Hypertension. 5. Chronic pain, on continuous narcotics. 6. History of peptic ulcer disease, status post partial gastrectomy. 7. Shoulder surgery to rotator cuff. 8. Colon surgery. 9. He had a stent placed in 1 of his vein grafts. FAMILY HISTORY: Only child. SOCIAL HISTORY: No tobacco, no alcohol. He is retired in the secondary to low back pain. 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 ALLERGIES: Codeine and Benadryl. HOME MEDICATIONS: Aspirin, gabapentin, [place], metformin, atorvastatin, citalopram, empagliflozin, li nagliptin, lisinopril, metoprolol, MS Contin, pregabalin, ropinirole, senna docusate. PHYSICAL EXAMINATION: PRESENTING VITAL SIGNS: Temp 37, blood pressure 126/97, pulse 50s, breathing 18 times a minute, 96% on room air. GENERAL: No acute distress, uncomfortable, HEENT: Sclerae anic teric. Oropharynx clear. Mucous membranes moist. NECK: Supple without lymphadenopathy or JVD. DORON NGS: Clear to auscultation bilaterally. HEART: S1, S2. ABDOMEN: Soft, nontender, nondistended. LOWER EXTREMITIES: Without edema. Calves nontender. SKIN: Without rash. NEUROLOGIC: Exam shows weakness with dorsiflexion and plantar flexion of the right foot. He is limited by pain. He does no t have decreased sensation. LABS: White count 12, hematocrit 44, platelets are 220,000. INR is 1. Sodium 140, potassium 4.7, c hloride 104, bicarb 27, BUN 21, creatinine 0.8, glucose 106. There is no imaging. I have discussed the case with Neurosurgery as well as Dr. Parish Jin in the em ergency department. There was an MRI performed on 02/08/2018, which I described in the HPI. ASSESSMENT AND PLAN: A 67-year-old gentleman with L4-L5 disk protrusion with significant symptoms re fractory to epidural steroid injection. 1. Low back pain. I will provide medical management with Neurontin, Valium, and oxycodone. He has been seen by Neurosurgery. It sounds like he may be a candidate for surgical management of this. He does not have any progressive neurologic findings other than perhaps dorsiflexion. It seems to be m ore pain dominated than weakness dominated. 2. Coronary artery disease. The patient has done well since his bypass and represents no medical co ntraindication to surgery. He does not require further workup. I have, at this point in time, held his aspirin given the likely need for upcoming neurosurgery. Will continue his beta ruth. 3. Hyperkalemia. He had hyperkalemia during a previous admission. Beta ruth dose is decreased. This appears to have resolved. 4. Diabetes. Will continue his oral medications minus metformin and follow. I will put him on a sl iding scale. 5. Prophylaxis. Pharmacologic prophylaxis indicated; however, given the need for surgery, will proc eed with SCDs. 6. Disposition: Inpatient status. /[id number]/MODL
--- NOTE | 2018-02-15 15:01 | GCON ---
[f rep st] CONSULTATION NEUROSURGICAL CONSULTATION CHIEF COMPLAINT: Right lower extremity pain and burning in the foot. SUBJECTIVE: The patient is a pleasant 67-year-old male, with a long history of low back pain, who wa s seen last week in the [facility] Emergency Department for severe back pain and was subsequently admitted and underwent right L3-L4 and L4-L5 transforaminal epidural steroid injections and selective nerve root blocks, and was discharged home last Tuesday. Unfortunately, those injecti ons provided zero relief for the patient. The patient has been dealing with pain since Tuesday of , and today brought himself back to the emergency department secondary to an acute increase in his pain, particularly from the knee down on his right side, with severe burning pain in the top of t he right foot that has been worsening over the past several days. Patient denies any bowel or bladde r incontinence, though he has fallen twice over the past several days. He underwent a lumbar MRI at [facility] on February 08, which demonstrates multilevel mild to moderate degenerative changes, with severe degenerative disk disease and a right-sided L4-L5 disk bulge/protrusion contribu ting to moderate acquired central canal stenosis, and moderately stenotic bilateral foraminal stenosi s. Also noted are widened facet joints at the L4-L5 level. The patient has previously tried physical therapy, epidural steroid injections, activity modification , and medications with no long-lasting pain relief. ALLERGIES: 1. Codeine. 2. Benadryl. HOME MEDICATIONS: 1. Aspirin 325 mg p.o. daily; last dose on 02/14/2018. 2. Lipitor 80 mg p.o. daily. 3. Celexa 40 mg p.o. daily. 4. Jardiance 10 mg p.o. daily. 5. Gabapentin 300 mg p.o. three times daily. 6. [place] 7.5-325 one p.o. q.6 hours p.r.n. pain. 7. Tradjenta 5 mg tablet p.o. daily. 8. Zestril 5 mg p.o. daily. 9. Metformin 1000 mg p.o. twice daily with meals. 10. Lopressor 25 mg p.o. twice daily. 11. Morphine SR 15 mg tablets p.o. q.12 hours. 12. Lyrica 75 mg p.o. twice daily. 13. Requip 0.5 mg p.o. at bedtime. 14. Senokot 1-2 p.o. twice daily. PAST SURGICAL HISTORY: Stomach ulcer repair, right shoulder repair, colon repair, back surgery for s taph infection which was treated with several weeks of IV antibiotics, 5-vessel coronary artery bypas s, and 1 cardiac stent. REVIEW OF SYSTEMS: Negative other than what is mentioned in the HPI. PAST MEDICAL HISTORY: Coronary artery disease, hypertension, lumbar degenerative disk disease, and s aylin stenosis. SOCIAL HISTORY: The patient is . He is a nonsmoker. He does not drink. He lives with his w antelmo. FAMILY HISTORY: Noncontributory. PHYSICAL EXAMINATION: GENERAL: Pleasant, healthy-appearing 67-year-old male in moderate discomfort. HEAD, EARS, NOSE, THROAT: Within normal limits. EXTREMITIES: Within normal limits. ABDOMEN: So ft, nontender, and nondistended. NEUROLOGIC: Patient awake, alert, and oriented x4. Cranial nerves 2-12 are intact to gross examination. Speech is fluent. Tongue is midline. Spinal accessory muscl es are intact. He has equal and symmetric strength of the bilateral upper extremities in all muscle distributions, with normal sensation in all dermatomal distributions. He has 5/5 strength in the lef t lower extremity in all muscle groups, and normal sensation in all dermatomal distributions. In his right lower extremity, he has 5-/5 left dorsiflexor and EHL weakness, with 5/5 plantar flexor streng th, and 5/5 quad, iliopsoas, and hamstring strength. He has hypersensitivity in the L5 distribution in the right leg, with severe burning pain in the top of the right foot into the great toe. Reflexes are 2/4 at bilateral biceps, brachioradialis, patellar tendons with negative Louisa's bilaterally. DATA REVIEW: Laboratory studies: White blood cell count is 11.95, hemoglobin is 14.3, hematocrit is 43.6, platelet count is 220, ESR is 4. His PT is 13.2, INR is 0.98. Chemistry: Sodium is 140, pot assium is 4.7, chloride 104, carbon dioxide 27, BUN 21, and creatinine 0.8. Lumbar MRI, from February 08, 2018, performed at [facility], demonstrates moderate degene rative disease at the L4-L5 level with a right paracentral disk extrusion/protrusion causing moderate lateral recess stenosis and moderate central canal stenosis. He has bilateral facet arthropathy. A t L3-L4, there is mild disk desiccation with mild central canal stenosis and a broad-based disk protr usion within the left neural foramen, with secondary moderate foraminal encroachment and mild right f oraminal narrowing. L5-S1 demonstrates mild degenerative disk disease with a small left paracentral disk protrusion without foraminal narrowing. IMPRESSION: This is a 67-year-old male with a history of chronic low back pain that has been refract ory to L3-L4 and L4-L5 transforaminal epidural steroid injections and selective nerve root blocks, as well as physical therapy, activity modification, and pain medication. He has had an acute exacerbat ion over the past several days, now with severe burning hyperesthesia in the right L5 distribution, w hich is likely related to his L4-L5 degenerative disk disease and right paracentral disk herniation. Patient does have a history of a prior lumbar surgery complicated by a staph infection requiring IV antibiotics. He is currently not on any suppressive therapy for this. Patient also does have a sign ificant cardiac history of 5-vessel coronary artery bypass graft and 1 stent. His industrial property appraiser is Dr Rubina Feldman. PLAN: All above issues were discussed with the patient in detail, with his present, as well as with Dr. Staley, who was present and saw and examined the patient in the ER today at approximately 12 :45 p.m. At this time, we would like the patient to undergo blood cultures, urinalysis, lumbar flexion-extensi on x-rays, and he will be admitted to the floor for pain control under the hospitalist service. If t he patient does not exhibit any results indicating ongoing infection, he may be a candidate for an L4 -L5 transfemoral lumbar interbody fusion; otherwise, he would be a candidate for an L4-L5 microdiskec kory. We recommend medical clearance prior to surgery and holding his 325 mg aspirin. /[id number]/MODL
[2018-02-15] MEDS: INSULIN LISPRO 100 UNIT/ML SC SCH (16:07)
[2018-02-15] MEDS: PREGABALIN 75 MG CAP PO SCH (21:32)
[2018-02-15] MEDS: METOPROLOL TARTRATE 25 MG TAB PO SCH (21:33)
[2018-02-16] MEDS: morphINE SR 15 MG TAB PO SCH ×2 (02:20→13:48)
[2018-02-16] MEDS: oxyCODONE IR 5 MG TAB PO PRN ×5 (04:32→21:45)
[2018-02-16] MEDS: DIAZEPAM 5 MG TAB PO PRN ×2 (05:20→19:39)
[2018-02-16] MEDS: INSULIN LISPRO 100 UNIT/ML SC SCH ×3 (08:17→16:19)
[2018-02-16] MEDS: CITALOPRAM 20 MG TAB PO SCH (08:27)
[2018-02-16] MEDS: PREGABALIN 75 MG CAP PO SCH ×2 (08:27→19:40)
[2018-02-16] MEDS: GABAPENTIN 300 MG CAP PO SCH ×3 (08:27→21:46)
[2018-02-16] MEDS: ATORVASTATIN CALCIUM 40 MG TAB PO SCH (08:27)
[2018-02-16] MEDS: LISINOPRIL 5 MG TAB PO SCH (08:28)
[2018-02-16] MEDS: METOPROLOL TARTRATE 25 MG TAB PO SCH ×2 (08:28→19:41)
[2018-02-16] MEDS: Empagliflozin [Jardiance] 10 MG PO SCH (08:33)
--- NOTE | 2018-02-16 09:02 | ASMTCMCOM ---
CM Note CM Note Notes: Chart reviewed. 67 year old male with hx significant for CAD, and HTN admitted via ED with acute back pain. He is being followed by neurosurgery. Plan unclear at this time. Plan: TBD Date Signed: 02/16/2018 09:02 AM Electronically Signed By:Laurie Grace RN
--- NOTE | 2018-02-16 09:47 | NEUSURGPN ---
Assessment/Plan: 67 y/o male with Right leg pain and L4/5 spondylolthesis with DJD and right HNP - Blood cultures pending. ESR and CRP both normal - Patient had xrays yesterday but they do not included flexion/extension views to eval for instability. Will have patient complete those today for surgical planning -Optimize pain management -Hold ASA in preoperation for surgical intervention -Discussed with Dr. Staley -If he develops any new or worsening symptoms he is encouraged to give our office a call. Subjective: Right leg pain. Back pain is chronic and tolerable Objective: NAD A&Ox3 MAEx4 5/5 and equal in BUE and BUE. Sensation intact - Physician Discussed Patient with : [facility] Neurosurgery Physical Exam - Vitals, I&O, Labs I and O 02/15/18 02/16/18 02/17/18 05:59 05:59 05:59 Intake Total 1800 Output Total 1650 450 Balance 150 -450 Weight 80.286 kg Intake: Oral (ml) 800 IV Infused (ml) 1000 Output: Urine (ml) 1650 450 Urinal 1650 450 Other: Intake Quantity Yes Sufficient Number of Voids Urinal 1 Vital Signs Temp Pulse Resp BP Pulse Ox 36.9 C 66 16 149/83 H 93 02/16/18 07:40 02/16/18 08:28 02/16/18 07:40 02/16/18 08:28 02/16/18 07:40 ICD10 Worksheet Patient Problems: Problems Problem Status Onset Herniation of lumbar intervertebral disc with radiculopathy Acute Intractable low back pain Acute Lumbar stenosis Acute Back pain Acute Polyp of cecum Acute
--- NOTE | 2018-02-16 10:30 | PDMN ---
Medical Necessity Medical necessity: Pt meets IP criteria per MD; est los >2 mn for eval/tx of ongoing lower back pain r/t L4/5 disk protrusion w/lumbar stenosis; requiring Neuro consult w/possible surgical intervention, pain management & therapy; hx recent hospitalization for back pain w/epidural steroid injection & nerve block , CAD, CABG, HTN, diabetes; per H&P & order 02/15/18
--- NOTE | 2018-02-16 14:41 | HOSPPROG ---
Hospitalist Progress Note Assessment/Plan: 89 yo M w L4-5 disc herniation refractory to steroid injection pain: still sig neuropathic pain increase neurontin neurosurgery hopefull to operate 02/17 h/o discitis: afebrile blood cx drawn low suspicion cad/preop: patient w ok exercise tolerance and can proceed to surgery w/out further workup or intervention dm: continue po meds and lispro ss dispo: inpt Subjective: pain control not great. case dw neurosurgery PA Objective: Vital Signs Temp Pulse Resp BP Pulse Ox 36.8 C 55 L 16 138/86 H 93 02/16/18 11:23 02/16/18 11:23 02/16/18 11:23 02/16/18 11:23 02/16/18 11:23 02/15/18 02/16/18 02/17/18 05:59 05:59 05:59 Intake Total 1800 300 Output Total 1650 1850 Balance 150 -1550 PT 13.2 SEC (12.0-15.0) 02/15/18 10:11 INR 0.98 (0.83-1.16) 02/15/18 10:11 - Physical Exam Constitutional: no apparent distress, appears nourished Eyes: PERRL, anicteric sclera Ears, Nose, Mouth, Throat: moist mucous membranes, hearing normal Cardiovascular: regular rate and rhythym, no murmur, rub, or gallop Respiratory: no respiratory distress, no rales or rhonchi Gastrointestinal: normoactive bowel sounds, soft, non-tender abdomen Genitourinary: no bladder fullness, No montes in urethra Skin: warm, normal color Musculoskeletal: No full muscle strength Neurologic: AAOx3 ICD10 Worksheet Patient Problems: Problems Problem Status Onset Herniation of lumbar intervertebral disc with radiculopathy Acute Intractable low back pain Acute Lumbar stenosis Acute Back pain Acute Polyp of cecum Acute
[2018-02-16] MEDS: SENNOSIDES/DOCUSATE SODIUM TAB PO PRN (21:46)
[2018-02-17] MEDS: oxyCODONE IR 5 MG TAB PO PRN ×3 (00:49→20:27)
[2018-02-17] MEDS: morphINE SR 15 MG TAB PO SCH ×2 (02:05→14:36)
[2018-02-17] MEDS: DIAZEPAM 5 MG TAB PO PRN ×2 (05:35→22:38)
[2018-02-17] MEDS: ATORVASTATIN CALCIUM 40 MG TAB PO SCH (08:44)
[2018-02-17] MEDS: GABAPENTIN 300 MG CAP PO SCH ×3 (08:44→21:22)
[2018-02-17] MEDS: METOPROLOL TARTRATE 25 MG TAB PO SCH ×2 (08:45→21:22)
[2018-02-17] MEDS: LISINOPRIL 5 MG TAB PO SCH (08:45)
[2018-02-17] MEDS: PREGABALIN 75 MG CAP PO SCH ×2 (08:45→21:22)
[2018-02-17] MEDS: CITALOPRAM 20 MG TAB PO SCH (08:45)
[2018-02-17] MEDS: INSULIN LISPRO 100 UNIT/ML SC SCH ×3 (08:46→18:20)
[2018-02-17] MEDS: Empagliflozin [Jardiance] 10 MG PO SCH (09:38)
[2018-02-17] MEDS ORDERED: ceFAZolin 2 GM/DEXTROSE 100 ML IV ONE (09:43)
--- NOTE | 2018-02-17 09:43 | NEUSURGPN ---
Assessment/Plan: 67 y/o male with Right leg pain and L4/5 spondylolthesis with DJD and right HNP - Blood cultures pending. ESR and CRP both normal - Xrays of the lumabr spine do not demonstrate any instability - Discussed the risks, benefits and alternative with patient for an L3/4 and L4/ 5 laminectomy with microdiscectomy. Consents provided and questions answered. -Patient marked -NPO -Pre-op antibiotics ordered -Discussed with Dr. Staley Subjective: Continues with debilitating right hip/leg pain. Objective: NAD A&OX3 MAEx4 5/5 and equal in BUE and BLE. Sensation intact Neurosurgery Physical Exam - Vitals, I&O, Labs I and O 02/16/18 02/17/18 02/18/18 05:59 05:59 05:59 Intake Total 1800 1500 100 Output Total 1650 2750 625 Balance 150 -1250 -525 Weight 80.286 kg Intake: Oral (ml) 800 1500 100 IV Infused (ml) 1000 Output: Urine (ml) 1650 2750 625 Urinal 1650 2750 625 Other: Intake Quantity Yes Yes Sufficient Number of Voids Urinal 1 1 1 Vital Signs Temp Pulse Resp BP Pulse Ox 36.6 C 51 L 16 128/79 H 95 02/17/18 07:42 02/17/18 08:45 02/17/18 07:42 02/17/18 08:45 02/17/18 07:42 ICD10 Worksheet Patient Problems: Problems Problem Status Onset Herniation of lumbar intervertebral disc with radiculopathy Acute Intractable low back pain Acute Lumbar stenosis Acute Back pain Acute Polyp of cecum Acute
--- NOTE | 2018-02-17 12:56 | HOSPPROG ---
Hospitalist Progress Note Assessment/Plan: 89 yo M w L4-5 disc herniation refractory to steroid injection pain: still sig neuropathic pain increase neurontin neurosurgery hopefull to operate 02/17 h/o discitis: afebrile blood cx drawn low suspicion cad/preop: able to achieve > 4 mets w no chest sx to OR w no further workup or intervention dm: continue po meds and lispro ss dispo: inpt Subjective: awaiting surgery. case d/w neurosurgery PA Objective: Vital Signs Temp Pulse Resp BP Pulse Ox 36.6 C 51 L 16 128/79 H 95 02/17/18 07:42 02/17/18 08:45 02/17/18 07:42 02/17/18 08:45 02/17/18 07:42 02/16/18 02/17/18 02/18/18 05:59 05:59 05:59 Intake Total 1800 1500 100 Output Total 1650 2750 625 Balance 150 -1250 -525 PT 13.2 SEC (12.0-15.0) 02/15/18 10:11 INR 0.98 (0.83-1.16) 02/15/18 10:11 - Physical Exam Constitutional: no apparent distress, appears nourished Eyes: PERRL, anicteric sclera Ears, Nose, Mouth, Throat: moist mucous membranes, hearing normal Cardiovascular: regular rate and rhythym, no murmur, rub, or gallop Respiratory: no respiratory distress, no rales or rhonchi Gastrointestinal: normoactive bowel sounds, soft, non-tender abdomen, no palpable masses Genitourinary: No montes in urethra Skin: warm, normal color Musculoskeletal: full muscle strength, no muscle tenderness Neurologic: AAOx3 ICD10 Worksheet Patient Problems: Problems Problem Status Onset Herniation of lumbar intervertebral disc with radiculopathy Acute Intractable low back pain Acute Lumbar stenosis Acute Back pain Acute Polyp of cecum Acute
--- NOTE | 2018-02-17 14:29 | ASMTCMCOM ---
CM Note CM Note Notes: Pt to OR today. PT to eval when appropriate. CM will follow pt for d/c planning. D/c plan: TBD now Date Signed: 02/17/2018 02:28 PM Electronically Signed By:IVETTE Bishop
[2018-02-17] MEDS ORDERED: CHLORHEXIDINE GLUC HIBICLENS 118 ML BTL TP ONE (14:57)
[2018-02-17] MEDS ORDERED: LR 1,000 ML IV ONE (15:27)
[2018-02-17] MEDS ORDERED: THROMBIN (BOVINE) 5,000 UNIT VIAL TP ONE (15:33)
[2018-02-17] MEDS ORDERED: BUPIVACAINE 0.25% 30 ML SDV ONE ×2 (15:33→17:36)
[2018-02-17] MEDS ORDERED: SURGIFLO MATRIX KIT WITH THROMBIN 8 ML TP ONE (15:33)
[2018-02-17] MEDS ORDERED: TRIAMCINOLONE ACETONIDE 40 MG/ML VIAL ONE (15:34)
[2018-02-17] MEDS ORDERED: BACITRACIN 50,000 UNITS/10 ML SYR IRR ONE (15:34)
[2018-02-17] MEDS ORDERED: EPINEPHrine 1 MG/ML INJ ONE (15:34)
[2018-02-17] MEDS ORDERED: CEFAZOLIN 2 GM/DEXTROSE/100 ML BAG IV ONE (15:38)
[2018-02-17] MEDS ORDERED: fentaNYL 100 MCG/2 ML INJ ONE ×3 (15:52→19:19)
[2018-02-17] MEDS ORDERED: PROPOFOL/EMULSION 500 MG/50 ML BOTTLE IV ONE (15:52)
[2018-02-17] MEDS ORDERED: REMIFENTANIL HCL 1 MG VIAL ONE (15:52)
[2018-02-17] MEDS ORDERED: LIDOCAINE 2% 5 ML SDV ONE (16:03)
[2018-02-17] MEDS ORDERED: ONDANSETRON 4 MG/2 ML VIAL ONE (16:03)
[2018-02-17] MEDS ORDERED: ROCURONIUM 50 MG/5 ML VIAL ONE (16:03)
[2018-02-17] MEDS ORDERED: KETAMINE 200 MG/20 ML VIAL ONE (16:12)
[2018-02-17] MEDS ORDERED: PHENYLEPHRINE HCL 100 MCG/ML SYR ONE (16:49)
[2018-02-17] MEDS ORDERED: ePHEDrine SULFATE 25 MG/5 ML SYR ONE (16:49)
[2018-02-17] MEDS ORDERED: DEXAMETHASONE 4 MG/ML VIAL ONE (16:51)
[2018-02-17] MEDS ORDERED: HYDROmorphONE/DILAUDID 2 MG/ML INJ ONE (17:05)
--- NOTE | 2018-02-17 17:34 | PDANEPAE ---
ANE History of Present Illness lumbar stenosis p/f lami ANE Past Medical History - Cardiovascular History Hx Hypertension: Yes Hx Arrhythmias: No Hx Chest Pain: No Hx Coronary Artery / Peripheral Vascular Disease: Yes Hx CHF / Valvular Disease: No Hx Palpitations: No Cardiovascular History Comment: cad. htn. cardiac cath 09/27/16. 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 restless leg syndrome. herniated and bulging discs- chronic pain to back - Endocrine History Hx Diabetes: Yes Obesity: no Endocrine History Comment: type 2 - Renal History Hx Renal Disorders: No - Liver History Hx Hepatic Disorders: No - Neurological & Psychiatric Hx Hx Neurological and Psychiatric Disorders: Yes Neurological / Psychiatric History Comment: ptsd. agent orange - Cancer History Hx Cancer: No - Congenital Disorder History Hx Congenital Disorders: No - GI History Hx Gastrointestinal Disorders: Yes Gastrointestinal History Comment: occ constipation from medications - Other Health History Other Health History: hard of hearing- no aides- from [place]. wears glasses. 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 back surgery l4-5 ended up with infection s/p surgery 2016 @ [facility]. repair of bleeding ulcer 1984. right shoulder surgery ANE Review of Systems Review of systems is: negative Review of Systems: - Exercise capacity Exercise capacity: <4 METS ANE Patient History - Allergies Allergies/Adverse Reactions: codeine [Codeine] Allergy (Mild, Verified 02/08/18 10:57) Vomiting diphenhydramine HCl [From Benadryl] Allergy (Mild, Verified 02/08/18 10:57) Other-Enter Comments - Home Medications Home medications: home medication list seen and reviewed Home Medications: Atorvastatin Calcium [Lipitor 80 mg] 80 mg PO DAILY 01/16/13 [Last Taken ] Hydrocodone/Acetaminophen [[place] 7.5-325 Tablet] 1 tab PO Q6HRS PRN 01/16/13 [ Last Taken 02/14/18 21:00] Aspirin [Aspirin 325 mg (*)] 325 mg PO DAILY 09/27/16 [Last Taken 02/14/18] Linagliptin [Tradjenta] 5 mg PO DAILY 09/27/16 [Last Taken 02/14/18] Metformin HCl [Metformin 1000 mg] 1,000 mg PO BIDMEAL 09/27/16 [Last Taken 02/14 18:00] morphINE SR [Ms Contin/Oramorph 15 mg (*)] 15 mg PO Q12H 09/27/16 [Last Taken 21:00] Lisinopril [Zestril 5 mg (*)] 5 mg PO DAILY 10/13/16 [Last Taken 02/14/18] Ropinirole HCl [Requip 0.5mg] 1 mg PO HS 10/13/16 [Last Taken 02/14/18] Citalopram Hydrobromide [Celexa] 40 mg PO DAILY 02/08/18 [Last Taken 02/14/18] Empagliflozin [Jardiance] 10 mg PO DAILY 02/08/18 [Last Taken 02/14/18] Pregabalin [Lyrica 75mg (*)] 75 mg PO BID 02/08/18 [Last Taken 02/14/18 21:00] Metoprolol Tartrate [Lopressor 25 mg (*)] 25 mg PO BID 02/15/18 [Last Taken 21:00] Sennosides/Docusate Sodium [Senokot-S] 1 - 2 tab PO BID PRN 02/15/18 [Last Taken Unknown] - NPO status NPO Since - Liquids (Date): 02/17/18 NPO Since - Liquids (Time): 08:41 NPO Since - Solids (Date): 02/17/18 NPO Since - Solids (Time): 00:00 - Anes Hx Anes Hx: no prior problems - Smoking Hx Smoking Status: Former smoker - Family Anes Hx Family Hx Anesthesia Complications: none ANE Labs/Vital Signs - Labs Result Diagrams: 02/15/18 10:11 02/15/18 10:11 - Vital Signs Blood Pressure: 120/75 Heart Rate: 49 Respiratory Rate: 16 O2 Sat (%): 94 Height: 185.42 cm Weight: 80.286 kg ANE Physical Exam - Airway Neck exam: FROM Mallampati Score: Class 1 Mouth exam: normal dental/mouth exam - Pulmonary Pulmonary: no respiratory distress - Cardiovascular Cardiovascular: regular rate and rhythym - ASA Status ASA Status: III ANE Anesthesia Plan Anesthesia Plan: general endotracheal anesthesia Specialized Airway: video laryngoscope Urgent/Emergent Case: Cortez reyes completed preop but documented later for safe timely pt care
--- NOTE | 2018-02-17 17:34 | POSTANESTH ---
Post Anesthetic Evaluation Cardiovascular Status: Normal, Stable Respiratory Status: Normal, Stable Level of Consciousness/Mental Status: Can Participate in Eval, Mildly Sleepy, Arousable Pain Control: Adequate, Prn Tx Ordered Nausea/Vomiting Control: Adequate, Prn Tx Ordered Complications Possibly Related to Anesthesia: None Noted
--- NOTE | 2018-02-17 18:08 | POSTOPPROG ---
Post Op Note Date of Operation: 02/17/18 Surgeon: Johnathon Staley Laundry Marker Supervisor: Carlos Enrique Shin PA-C Anesthesiologist: James Anesthesia: Epidural, GET(General Endotracheal) Pre-op Diagnosis: L45 Stenosis with R L5 radiculopathy Post-op Diagnosis: same as preop Indication: intractable right leg pain Procedure: L45 laminectomy, R L45 medial facetectomy and discectomy Findings: good decompression, L5 descending nerve root visualized Inf/Abcess present in the surg proc area at time of surgery?: No EBL: Minimal (<50cc) Drains: John Solares
[2018-02-17] MEDS: fentaNYL 100 MCG/2 ML INJ IVP PRN ×4 (18:55→19:24)
[2018-02-17] MEDS ORDERED: oxyCODONE IR 5 MG TAB PO PRN (19:08)
[2018-02-17] MEDS ORDERED: NALOXONE HCL 0.4 MG/ML INJ IVP PRN (19:08)
[2018-02-17] MEDS ORDERED: PROMETHAZINE HCL 25 MG/ML INJ IVP PRN (19:08)
[2018-02-17] MEDS ORDERED: ONDANSETRON 4 MG/2 ML VIAL IVP PRN (19:08)
[2018-02-17] MEDS ORDERED: LR 500 ML IV PRN (19:08)
[2018-02-17] MEDS ORDERED: ACETAMINOPHEN 500 MG TAB PO PRN (19:08)
[2018-02-17] MEDS ORDERED: LABETALOL HCL 5 MG/ML 20 ML MDV IVP PRN (19:08)
[2018-02-17] MEDS ORDERED: ALBUTEROL 3 ML DEYVIAL IH PRN (19:08)
[2018-02-17] MEDS ORDERED: HYDROmorphONE/DILAUDID 1 MG/ML INJ ONE (19:13)
[2018-02-17] MEDS: HYDROmorphONE/DILAUDID 1 MG/ML INJ IVP PRN ×2 (19:14→19:23)
[2018-02-17] MEDS: FAMOTIDINE 20 MG TAB PO SCH (21:23)
[2018-02-17] MEDS: METHOCARBAMOL 750 MG TAB PO PRN (21:23)
[2018-02-18] MEDS: morphINE SR 15 MG TAB PO SCH ×2 (00:59→14:16)
[2018-02-18] MEDS: ceFAZolin 2 GM/DEXTROSE 100 ML IV SCH ×2 (01:01→09:03)
[2018-02-18] MEDS: oxyCODONE IR 5 MG TAB PO PRN ×5 (01:06→21:16)
[2018-02-18] MEDS: METHOCARBAMOL 750 MG TAB PO PRN ×2 (03:16→17:19)
[2018-02-18] MEDS: DIAZEPAM 5 MG TAB PO PRN ×2 (06:21→21:16)
--- NOTE | 2018-02-18 07:26 | NEUSURGPN ---
Assessment/Plan: 67 y/o male with Right leg pain and L4/5 spondylolthesis with DJD and right HNP , now POD 1 L45 laminectomy, Right L45 medial facetectomy and discectomy - Optimize pain management. Discussed nerve healing with patient. Pain still noticeable but decreased from presurgery. -PT/OT -DVT prophx: TEDs, SCDs, lovenox okay POD1 -Please notify NS with any change in neuro/motor exam -Dispo planning per medicine team. patient will need a post op check with Dr. Staley's team in 2-3 weeks post surgery -Discussed with Dr. Staley Subjective: Pain still present in right leg but improved. Objective: NAD A&Ox3 MAEx4 5/5 and equal in BUE and BLE. Dressing with some sanguineous staining but dry. - Physician Discussed Patient with Dr.: Staley Neurosurgery Physical Exam - Vitals, I&O, Labs I and O 02/17/18 02/18/18 02/19/18 05:59 05:59 05:59 Intake Total 1500 1420 Output Total 2750 1585 Balance -1250 -165 Weight 80.286 kg Intake: Oral (ml) 1500 520 IV Intake (ml) 900 Output: Urine (ml) 2750 1425 Urinal 2750 1425 Estimated Blood Loss (ml) 100 SHON Drain Output (ml) 60 Back John Solares 60 Other: Intake Quantity Yes Yes Sufficient Number of Voids Urinal 1 1 Vital Signs Temp Pulse Resp BP Pulse Ox 36.6 C 57 L 16 100/56 L 95 02/18/18 03:11 02/18/18 03:11 02/18/18 03:11 02/18/18 03:11 02/18/18 03:11 ICD10 Worksheet Patient Problems: Problems Problem Status Onset Herniation of lumbar intervertebral disc with radiculopathy Acute Intractable low back pain Acute Lumbar stenosis Acute Back pain Acute Polyp of cecum Acute
[2018-02-18] MEDS: FAMOTIDINE 20 MG TAB PO SCH ×2 (09:04→21:15)
[2018-02-18] MEDS: ATORVASTATIN CALCIUM 40 MG TAB PO SCH (09:05)
[2018-02-18] MEDS: PREGABALIN 75 MG CAP PO SCH ×2 (09:05→21:15)
[2018-02-18] MEDS: LISINOPRIL 5 MG TAB PO SCH (09:05)
[2018-02-18] MEDS: METOPROLOL TARTRATE 25 MG TAB PO SCH ×2 (09:05→21:15)
[2018-02-18] MEDS: CITALOPRAM 20 MG TAB PO SCH (09:05)
[2018-02-18] MEDS: GABAPENTIN 300 MG CAP PO SCH ×3 (09:07→21:16)
[2018-02-18] MEDS: ENOXAPARIN 40 MG/0.4 ML SYR SC SCH (09:07)
[2018-02-18] MEDS: Empagliflozin [Jardiance] 10 MG PO SCH (09:07)
[2018-02-18] MEDS: INSULIN LISPRO 100 UNIT/ML SC SCH ×3 (09:08→17:35)
[2018-02-18] MEDS: POLYETHYLENE GLYCOL 3350 17 GM PKT PO PRN (09:25)
[2018-02-18] MEDS ORDERED: NS 1,000 ML IV ONE (13:00)
--- NOTE | 2018-02-18 14:04 | HOSPPROG ---
Hospitalist Progress Note Assessment/Plan: 89 yo M w L4-5 disc herniation refractory to steroid injection pain: still sig neuropathic pain increase neurontin leg pain improved postop hypotension: resolved w IVF h/o discitis: afebrile blood cx drawn low suspicion cad/preop: able to achieve > 4 mets w no chest sx to OR w no further workup or intervention dm: continue po meds and lispro ss dispo: inpt Subjective: hypotensive requiring 1 L NS Objective: Vital Signs Temp Pulse Resp BP Pulse Ox 36.7 C 62 16 117/64 2 L 02/18/18 11:37 02/18/18 13:25 02/18/18 13:25 02/18/18 13:25 02/18/18 11:37 02/17/18 02/18/18 02/19/18 05:59 05:59 05:59 Intake Total 1500 1420 350 Output Total 2750 1585 650 Balance -1250 -165 -300 PT 13.2 SEC (12.0-15.0) 02/15/18 10:11 INR 0.98 (0.83-1.16) 02/15/18 10:11 - Physical Exam Constitutional: no apparent distress, appears nourished Eyes: PERRL, anicteric sclera Ears, Nose, Mouth, Throat: moist mucous membranes, hearing normal Cardiovascular: regular rate and rhythym, no murmur, rub, or gallop Respiratory: no respiratory distress, no rales or rhonchi Gastrointestinal: normoactive bowel sounds, soft, non-tender abdomen Genitourinary: No montes in urethra Skin: warm, normal color Musculoskeletal: full muscle strength, no muscle tenderness Neurologic: AAOx3 ICD10 Worksheet Patient Problems: Problems Problem Status Onset Herniation of lumbar intervertebral disc with radiculopathy Acute Intractable low back pain Acute Lumbar stenosis Acute Back pain Acute Polyp of cecum Acute
[2018-02-18] MEDS: SENNOSIDES/DOCUSATE SODIUM TAB PO PRN (15:50)
[2018-02-19] MEDS: oxyCODONE IR 5 MG TAB PO PRN ×5 (00:58→21:38)
[2018-02-19] MEDS: morphINE SR 15 MG TAB PO SCH ×2 (00:58→13:43)
[2018-02-19] MEDS: METHOCARBAMOL 750 MG TAB PO PRN ×3 (05:24→18:27)
--- NOTE | 2018-02-19 06:58 | NEUSURGPN ---
Assessment/Plan: 67 y/o male with Right leg pain and L4/5 spondylolthesis with DJD and right HNP , now POD 2 L45 laminectomy, Right L45 medial facetectomy and discectomy - Optimize pain management. Discussed nerve healing with patient. Pain in right leg improved. Now mostly with mostly low back pain. -PT/OT -DVT prophx: TEDs, SCDs, lovenox okay -SHON drain with only 5 cc our over night. May d/c later today -Please notify NS with any change in neuro/motor exam -Dispo planning per medicine team. patient will need a post op check with Dr. Staley's team in 2-3 weeks post surgery -Discussed with Dr. Staley Subjective: low back pain at incision site. Denies any new right leg pain. Preop right leg pain improved. Objective: NAD A&Ox3 MAEx4 5/5 and equal in BUE and BLE. Dressing c/d/i. - Physician Discussed Patient with : Luís Neurosurgery Physical Exam - Vitals, I&O, Labs I and O 02/18/18 02/19/18 02/20/18 05:59 05:59 05:59 Intake Total 1420 2800 Output Total 1585 3230 Balance -165 -430 Weight 80.286 kg Intake: Oral (ml) 520 1700 IV Intake (ml) 900 IV Infused (ml) 1100 Ns 1,000 ml @ As Directed 1000 IV ONCE ONE Rx#: [id number] ceFAZolin 2 GM/DEXTROSE 100 100 ml @ 200 mls/hr IV Q8H BETHEL Rx#:[id number] Output: Urine (ml) 1425 3225 Urinal 1425 3225 Estimated Blood Loss (ml) 100 SHON Drain Output (ml) 60 5 Back John Solares 60 5 Other: Intake Quantity Yes Yes Sufficient Number of Voids Urinal 1 1 Vital Signs Temp Pulse Resp BP Pulse Ox 36.7 C 56 L 16 107/63 97 02/19/18 04:00 02/19/18 04:00 02/19/18 04:00 02/19/18 04:00 02/19/18 04:00 ICD10 Worksheet Patient Problems: Problems Problem Status Onset Herniation of lumbar intervertebral disc with radiculopathy Acute Intractable low back pain Acute Lumbar stenosis Acute Back pain Acute Polyp of cecum Acute
[2018-02-19] MEDS: CITALOPRAM 20 MG TAB PO SCH (07:50)
[2018-02-19] MEDS: GABAPENTIN 300 MG CAP PO SCH ×3 (07:50→21:37)
[2018-02-19] MEDS: METOPROLOL TARTRATE 25 MG TAB PO SCH ×2 (07:51→21:37)
[2018-02-19] MEDS: ATORVASTATIN CALCIUM 40 MG TAB PO SCH (07:51)
[2018-02-19] MEDS: ENOXAPARIN 40 MG/0.4 ML SYR SC SCH (07:52)
[2018-02-19] MEDS: LISINOPRIL 5 MG TAB PO SCH (07:52)
[2018-02-19] MEDS: FAMOTIDINE 20 MG TAB PO SCH ×2 (07:52→21:38)
[2018-02-19] MEDS: DIAZEPAM 5 MG TAB PO PRN ×2 (07:55→21:38)
[2018-02-19] MEDS: PREGABALIN 75 MG CAP PO SCH (07:55)
[2018-02-19] MEDS: POLYETHYLENE GLYCOL 3350 17 GM PKT PO PRN (07:56)
[2018-02-19] MEDS: SENNOSIDES/DOCUSATE SODIUM TAB PO PRN ×2 (07:56→21:36)
[2018-02-19] MEDS: INSULIN LISPRO 100 UNIT/ML SC SCH ×3 (08:09→16:05)
--- NOTE | 2018-02-19 10:54 | HOSPPROG ---
Hospitalist Progress Note Assessment/Plan: 89 yo M w L4-5 disc herniation refractory to steroid injection pain: neuropathic pain is resolved this am * not sure if it was the increase in gabapentin or post-surgery * will keep dose the same and stop lyrica hypotension: resolved w IVF h/o discitis: afebrile blood cx drawn low suspicion cad/preop: able to achieve > 4 mets w no chest sx to OR w no further workup or intervention dm: continue po meds and lispro ss * low bs this am - watch dispo: inpt * probable home tomorrow Subjective: leg pain is resolved. still with back pain from surgery Objective: Vital Signs Temp Pulse Resp BP Pulse Ox 36.8 C 54 L 19 129/72 H 97 02/19/18 07:29 02/19/18 07:29 02/19/18 07:29 02/19/18 07:29 02/19/18 07:29 02/18/18 02/19/18 02/20/18 05:59 05:59 05:59 Intake Total 1420 2800 Output Total 1585 3230 Balance -165 -430 PT 13.2 SEC (12.0-15.0) 02/15/18 10:11 INR 0.98 (0.83-1.16) 02/15/18 10:11 - Physical Exam Constitutional: no apparent distress, appears nourished, not in pain Eyes: anicteric sclera, EOMI Ears, Nose, Mouth, Throat: moist mucous membranes Cardiovascular: regular rate and rhythym, no murmur, rub, or gallop Respiratory: no respiratory distress Skin: warm Neurologic: AAOx3, No weakness ICD10 Worksheet Patient Problems: Problems Problem Status Onset Herniation of lumbar intervertebral disc with radiculopathy Acute Intractable low back pain Acute Lumbar stenosis Acute Back pain Acute Polyp of cecum Acute
--- NOTE | 2018-02-19 11:34 | ASMTCMCOM ---
CM Note CM Note Notes: Chart reviewed for discharge planning purposes. Patient is post op and therapy recommending [facility] PT. Referrals placed, pending approval, CM to follow. Plan: Home with [facility] services. Date Signed: 02/19/2018 11:33 AM Electronically Signed By:Laurie Grace RN
[2018-02-19] MEDS: Empagliflozin [Jardiance] 10 MG PO SCH (12:38)
[2018-02-20] MEDS: oxyCODONE IR 5 MG TAB PO PRN ×2 (02:42→08:17)
[2018-02-20] MEDS: morphINE SR 15 MG TAB PO SCH ×2 (02:42→14:58)
[2018-02-20] MEDS: METHOCARBAMOL 750 MG TAB PO PRN ×2 (02:42→08:12)
--- NOTE | 2018-02-20 08:03 | NEUSURGPN ---
Date of Surgery: 02/17/18 Post Op Day: 3 Assessment/Plan: 67 y/o male with Right leg pain and L4/5 spondylolthesis with DJD and right HNP , now POD#3 L45 laminectomy, Right L45 medial facetectomy and discectomy -Optimize pain management. Mostly expected incisional pain. -PT/OT -DVT prophx: TEDs, SCDs, lovenox okay -DC SHON drain -Please notify NS with any change in neuro/motor exam -Ok to dc home from neurosurgery standpoint if pain is well managed -Dispo planning per medicine team. patient will need a post op check with Dr. Staley's team in 2-3 weeks post surgery -Discussed with Dr. Staley Subjective: Incisional pain, right leg pain improved Objective: AxO x3 PERRLA 5/5 BUE, BLE Sensation intact to light touch BLE Dressing old dried blood SHON patent Neuro Check Frequency: per routine Urinary Catheter in Place: No - Physician Discussed Patient with Dr.: Staley Neurosurgery Physical Exam - Vitals, I&O, Labs I and O 02/19/18 02/20/18 02/21/18 05:59 05:59 05:59 Intake Total 2800 200 Output Total 3230 1775 1100 Balance -430 -1575 -1100 Intake: Oral (ml) 1700 200 IV Infused (ml) 1100 Ns 1,000 ml @ As Directed 1000 IV ONCE ONE Rx#: [id number] ceFAZolin 2 GM/DEXTROSE 100 100 ml @ 200 mls/hr IV Q8H BETHEL Rx#:[id number] Output: Urine (ml) 3225 1775 1100 Urinal 3225 1775 1100 SHON Drain Output (ml) 5 Back John Solares 5 Other: Intake Quantity Yes Sufficient Number of Voids Urinal 1 1 Vital Signs Temp Pulse Resp BP Pulse Ox 36.8 C 65 18 111/67 98 02/20/18 07:56 02/20/18 07:56 02/20/18 07:56 02/20/18 07:56 02/20/18 07:56 ICD10 Worksheet Patient Problems: Problems Problem Status Onset Herniation of lumbar intervertebral disc with radiculopathy Acute Intractable low back pain Acute Lumbar stenosis Acute Back pain Acute Polyp of cecum Acute
[2018-02-20] MEDS: INSULIN LISPRO 100 UNIT/ML SC SCH ×4 (08:11→18:49)
[2018-02-20] MEDS: GABAPENTIN 300 MG CAP PO SCH ×3 (08:13→22:10)
[2018-02-20] MEDS: FAMOTIDINE 20 MG TAB PO SCH ×2 (08:18→22:10)
[2018-02-20] MEDS: METOPROLOL TARTRATE 25 MG TAB PO SCH ×2 (08:18→22:14)
[2018-02-20] MEDS: CITALOPRAM 20 MG TAB PO SCH (08:19)
[2018-02-20] MEDS: ATORVASTATIN CALCIUM 40 MG TAB PO SCH (08:19)
[2018-02-20] MEDS: LISINOPRIL 5 MG TAB PO SCH (08:19)
[2018-02-20] MEDS: ENOXAPARIN 40 MG/0.4 ML SYR SC SCH (08:20)
[2018-02-20] MEDS: Empagliflozin [Jardiance] 10 MG PO SCH (08:22)
[2018-02-20] MEDS: SENNOSIDES/DOCUSATE SODIUM TAB PO PRN (08:27)
[2018-02-20] MEDS: POLYETHYLENE GLYCOL 3350 17 GM PKT PO PRN (08:27)
[2018-02-20] MEDS: DIAZEPAM 5 MG TAB PO PRN (11:04)
--- NOTE | 2018-02-20 11:33 | ASMTCMCOM ---
CM Note CM Note Notes: Annel from [facility] home care here to meet with pt, CM went in with her to introduce her to pt. Pt declines the need for home care, stating he knows what to do and that the exercises that PT has him do make things worse. He lives with his who can help him at home. CM available for any changes, pt to dc home independent. DC Plan: Independent Date Signed: 02/20/2018 11:32 AM Electronically Signed By:Annel Montano RN
[2018-02-20] MEDS ORDERED: LACTULOSE 20 GM/30 ML UDCUP PO PRN (12:39)
[2018-02-20] MEDS ORDERED: BISACODYL 10 MG SUPP PR PRN (12:39)
[2018-02-20] MEDS ORDERED: MAGNESIUM CITRATE 300 ML BOTTLE PO ONE (12:39)
[2018-02-20] MEDS ORDERED: MAGNESIUM HYDROXIDE 30 ML UDCUP PO PRN (12:39)
[2018-02-20] MEDS: HYDROCODONE/APAP 10/325 TAB PO PRN ×2 (13:06→19:16)
[2018-02-20] MEDS ORDERED: NS 1,000 ML IV ONE (15:34)
[2018-02-20 16:15] LABS: PLATELET COUNT 183 10^3/uL (150-400)
--- NOTE | 2018-02-20 17:38 | HOSPPROG ---
Hospitalist Progress Note Assessment/Plan: Assessment: 67 yo M p/w L4-5 disc herniation refractory to steroid injection requiring laminectomy Plan: # Disc herniation and spondylithesis on lumbar x-ray (personally interpreted). Acute, POD#3 s/p L-4-L5 lami -appreciate ongoing NSGY care -pain remains significant for patient and he is on neuropathic agents + PRN norco (requested by patient) -per NSGY, DC SHON drain today # Hypotension. Acute, new problem, further w/u indicated. Unclear whether 2/2 pain Rx vs. evolving infxn -check vLact, CBC, BMP, UA -monitoring for localizing infxn sx -SBP 60-80 prior to NS bolus, SBP 90-100 s/p bolus -use pain Rx sparingly # Hx diskitis. Afeb, check ESR/CRP, normal on presentation # Chronic CAD. Cont home Rx, no chest pain # DM2. Mild hyperglycemia, monitor on lispro ISS Diet. ADA PPx. High risk, lovenox 40 Code. DNR Dispo. ADD uncertain, remains high risk today w/ hypotension Subjective: fatigued, but cont to report pain Objective: Vital Signs Temp Pulse Resp BP Pulse Ox 36.6 C 69 12 86/46 L 96 02/20/18 15:10 02/20/18 15:10 02/20/18 15:10 02/20/18 15:10 02/20/18 15:10 Microbiology 02/15/18 14:52 Blood Culture - Final Blood 02/15/18 14:47 Blood Culture - Final Blood Laboratory Results 02/20/18 16:00 02/20/18 16:00 02/19/18 02/20/18 02/21/18 05:59 05:59 05:59 Intake Total 2800 200 Output Total 3230 1775 1100 Balance -430 -1575 -1100 PT 13.2 SEC (12.0-15.0) 02/15/18 10:11 INR 0.98 (0.83-1.16) 02/15/18 10:11 - Physical Exam Constitutional: no apparent distress, appears nourished, not in pain, uncomfortable Cardiovascular: regular rate and rhythym, no murmur, rub, or gallop, No edema Respiratory: no respiratory distress, no rales or rhonchi, clear to auscultation Gastrointestinal: normoactive bowel sounds, soft, non-tender abdomen, no palpable masses Skin: other (drain in back w/o surrounding erythema) Neurologic: AAOx3, sensation intact bilaterally, No weakness Psychiatric: interacting appropriately, not anxious, not encephalopathic, thought process linear ICD10 Worksheet Patient Problems: Problems Problem Status Onset Herniation of lumbar intervertebral disc with radiculopathy Acute Intractable low back pain Acute Lumbar stenosis Acute Back pain Acute Polyp of cecum Acute
[2018-02-20] MEDS ORDERED: BISACODYL 5 MG EC TAB PO ONE (18:26)
[2018-02-20] MEDS ORDERED: BISACODYL 5 MG EC TAB PO PRN (18:26)
[2018-02-20] MEDS: SENNOSIDES/DOCUSATE SODIUM TAB PO SCH (22:12)
[2018-02-21] MEDS: morphINE SR 15 MG TAB PO SCH (01:44)
[2018-02-21 07:45] VITALS: BP 136/84
[2018-02-21] MEDS: HYDROCODONE/APAP 10/325 TAB PO PRN ×2 (08:04→12:17)
[2018-02-21] MEDS: GABAPENTIN 300 MG CAP PO SCH (08:06)
[2018-02-21] MEDS: ATORVASTATIN CALCIUM 40 MG TAB PO SCH (08:07)
[2018-02-21] MEDS: CITALOPRAM 20 MG TAB PO SCH (08:07)
[2018-02-21] MEDS: LISINOPRIL 5 MG TAB PO SCH (08:07)
[2018-02-21] MEDS: METOPROLOL TARTRATE 25 MG TAB PO SCH (08:07)
[2018-02-21] MEDS: FAMOTIDINE 20 MG TAB PO SCH (08:08)
[2018-02-21] MEDS: ENOXAPARIN 40 MG/0.4 ML SYR SC SCH (08:08)
[2018-02-21] MEDS: Empagliflozin [Jardiance] 10 MG PO SCH (08:09)
[2018-02-21] MEDS: INSULIN LISPRO 100 UNIT/ML SC SCH (08:09)
[2018-02-21] MEDS: SENNOSIDES/DOCUSATE SODIUM TAB PO SCH (11:26)
--- NOTE | 2018-02-21 11:57 | PDDCSUM ---
Discharge Summary Discharge Summary: DISCHARGE SUMMARY FOLLOW-UP ITEMS: Reassess functional status as an outpatient, refill pain medications if needed DATE OF ADMISSION: 02/15/2018 DATE OF DISCHARGE: 02/21/2018 DISCHARGE DIAGNOSES: 1. Acute back pain secondary to disc herniation and spondylolisthesis 2. Chronic pain with continuous opiate dependency 3. Chronic coronary artery disease 4. Diabetes mellitus type 2 with hyperglycemia 5. Acute hypotension CONSULTATIONS: Neurosurgery PROCEDURES / IMAGING: L4-L5 laminectomy CHIEF COMPLAINT: Acute back pain SUBJECTIVE: Patient is feeling well at time discharge, he reports he is able to ambulate safely, he declines home care PHYSICAL EXAM ON DISCHARGE: Systolic blood pressure is 130-140, heart rate 50-60, afebrile overnight, satting well on room air, alert awake oriented x3, no apparent distress, lungs are clear to auscultation bilaterally, bowel sounds are present but not hyperactive, abdomen is soft, heart rhythm is regular, lower extremity motor strength 5/5 bilaterally LABS ON DISCHARGE: White blood cell count 26370, hemoglobin 12.5, platelets a [id number], potassium 5.1 , serum sodium 140, creatinine 0.9, CRP 54, ESR 32, urinalysis unremarkable HOSPITAL COURSE BY PROBLEM: The patient presented with acute back pain and inability to safely ambulate secondary to uncontrolled pain secondary to disc herniation and underlying spondylolisthesis. Patient underwent a back imaging which confirmed this diagnosis any underwent L4-L5 laminectomy by Dr. Martin. He received postsurgical care from the neurosurgery service and his SHON drain was discontinued on 02/20. His postoperative course was complicated by acute on chronic pain, with high opiate tolerance secondary to continuous opiate dependency, and his pain was eventually successfully managed with high-dose [place], increased dosage of gabapentin, addition of Robaxin. The patient also experienced constipation which was alleviated with an aggressive bowel regiment. He also experienced acute hypotension most likely secondary to pain medication effect and he received fluid bolus as well as adjustment of his [place] dosing. After adjusting his dosage from 1-2 tabs as needed down to half to 1 tab as needed, the patient's blood pressure stabilized. The patient has elected to not have home care services and he will be discharged home with his aforementioned pain medication adjustments, as well as outpatient recommendations to see his primary care provider later this week and neurosurgery in approximately 2 weeks. DISCHARGE MEDICATIONS: Please see official discharge medication reconciliation sheet in chart , [place] half to 1 tab as needed, Robaxin 750 4 times a day as needed, gabapentin increased from 300 mg 3 times a day to 600 mg 3 times a day, discontinue Lyrica. DISCHARGE INSTRUCTIONS: Please follow up with primary care provider later this week, Dr. Staley thereafter. TIME SPENT: Greater than 30 minutes were spent on direct patient care, as well as discharge planning and preparation.
--- NOTE | 2018-02-21 15:10 | ASDISCHSUM ---
Discharge Information Plan Status:Home with No Needs Medically Cleared to Leave: Discharge Date:02/21/2018 01:10 PM CM D/C Disposition:Home, Routine, Self-Care ADT D/C Disposition:Home, Routine, Self-Care Projected Discharge Date:02/19/2018 11:00 AM Transportation at D/C: Discharge Delay Reason: Follow-Up Date:02/19/2018 11:00 AM Discharge Slot: Final Diagnosis: Placement Information Referral Type:*Home Health Care Services Referral ID:[id number] Provider Name: Address 1: Phone Number: Address 2: Fax Number: City: Selection Factors: State: Patient Contact Information Contact Name:FRANK Relationship: Address:[address] Work Phone: [facility] Phone: [facility]/Zip Code:[place] [address] Email: Financial Information Financial Class:Medicare Primary Plan Desc:MEDICARE INPATIENT Primary Plan Number:[id number] Secondary Plan Desc: Secondary Plan Number: Assessment Information LACE LACE Length of stay for Answers: 7-13 days current admission Acuity / Level of Answers: Yes Care: Did the patient have an inpatient admission? Comorbidities - select Answers: Coronary Artery Disease all that apply Opioid dependence / Chronic pain Peptic ulcer disease Other Notes: HTN; Lumbar degenerativ e disc disease # of Emergency department Answers: 1-2 visits in the last 6 months Score: 18 Date Signed: 02/21/2018 02:30 PM Electronically Signed By:IVETTE Bishop [facility] Progress Note CM Note CM Note Notes: Chart reviewed. 67 year old male with hx significant for CAD, and HTN admitted via ED with acute back pain. He is being followed by neurosurgery. Plan unclear at this time. Plan: TBD Date Signed: 02/16/2018 09:02 AM Electronically Signed By:Laurie Grace RN [facility] CM Progress Note CM Note CM Note Notes: Pt to OR today. PT to [facility] when appropriate. CM will follow pt for d/c planning. D/c plan: TBD now Date Signed: 02/17/2018 02:28 PM Electronically Signed By:IVETTE Bishop [facility] CM Progress Note CM Note CM Note Notes: Chart reviewed for discharge planning purposes. Patient is post op and therapy recommending [facility] PT. Referrals placed, pending approval, CM to follow. Plan: Home with [facility] services. Date Signed: 02/19/2018 11:33 AM Electronically Signed By:Laurie Grace RN [facility] CM Progress Note CM Note CM Note Notes: Annel from [facility] here to meet with pt, CM went in with her to introduce her to pt. Pt declines the need for home care, stating he knows what to do and that the exercises that PT has him do make things worse. He lives with his who can help him at home. CM available for any changes, pt to dc home independent. DC Plan: Independent Date Signed: 02/20/2018 11:32 AM Electronically Signed By:Annel Montano RN [facility] CM Progress Note CM Note CM Note Notes: Pt declines HHC again. Pt declines Meals on Wheels. Pt medically stable for d/c with support, no CM d/c needs identified. Date Signed: 02/21/2018 02:31 PM Electronically Signed By:IVETTE Bishop Intervention Information Intervention Type:*Incorrect Registration Date of Service:02/15/2018 04:47 PM Patient Type:Observation Staff Member:JIMMIE Christensen Courtney Hours: Discipline: Severity: Comment:
--- NOTE | 2018-02-23 19:50 | GOP ---
[f rep st] OPERATIVE REPORT DATE OF OPERATION: 02/17/2018 SURGEON: Johnathon Staley MD REHABILITATION CONSULTANT: Carlos Enrique Shin PA-C. ANESTHESIA: GETA. PREOPERATIVE DIAGNOSIS: Severe right-sided L4-5 lateral recess stenosis with L5 nerve root compressi on and a clinical presentation consistent with an intractable right L5 radiculopathy. POSTOPERATIVE DIAGNOSIS: Severe right-sided L4-5 lateral recess stenosis with L5 nerve root compress ion and a clinical presentation consistent with an intractable right L5 radiculopathy. PROCEDURE PERFORMED: L4-5 redo laminectomy with a right L4-5 medial facetectomy and microdiskectomy, use of neuromonitoring and use of fluoroscopy, less than 1 hour time. FINDINGS: Widely decompressed descending right L5 nerve root directly visualized. SPECIMENS: Removed none. ESTIMATED BLOOD LOSS: Less than 100 cc. INDICATIONS: The patient is a 67-year-old male with history of a prior L4-5 decompressive operation He is here in the hospital for a second sign after complaining of severe right leg and carlton t pain in L5 distribution that has been medically intractable last epidural steroid inject ion, but was ineffective. The patient is so symptomatic out of bed and walking is incredi angeles painful. He has an MRI with very significant stenosis at L4-5 on the right side, which matches h is clinical picture. Based on all these findings, risks, benefits, alternatives were discussed for a redo L4-5 decompressive surgery, and he signed informed consent prior to the procedure. DESCRIPTION OF PROCEDURE: The patient was brought to the operating room and a sign-in was performed. He was given 2 g of IV Ancef to prevent postoperative infection. He was smoothly induced under gen eral anesthesia and intubated without difficulty. Appropriate IV access was obtained. SCDs were beti melania for postoperative DVT and neuromonitoring electrodes were placed and baseline signals were obtain ed. He was placed prone onto the operating table atop a Bryant frame which was cranked to maximize h is lumbar kyphosis. Pressure points were padded well. His back was washed with chlorhexidine shampo o and rubbing alcohol which was allowed to dry. His old incision was traced and ChloraPrep was used to sterilize the skin. 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 Green. The surgical field was created with blue towels and Ioban and a steri le surgical drape. Prior to procedure, a time-out was performed with all members of surgery, nursing , anesthesia went over the necessary checklist items and agreed to proceed. 10 cc of 0.25% Marcaine with 1:200,000 parts of epinephrine was injected along the planned incision line, and a #10 scalpel u sed to incise the skin and dermis and the subcutaneous layers. Self-retaining retractor was placed. Bovie electrocautery was used to complete the midline fascial and paraspinal muscular dissection str ipping the muscles off L4, L5 spinous processes and lamina, careful not to violate the bilateral face t joints and create postoperative instability. We removed the scar tissue from the prior operation w ith Shanelksell rongeurs, and we removed a significant amount of the remaining L4-5 spinous process and l gricelda with the Kerrison rongeurs. We then completed our laminectomy with a high-speed drill with a m atch stick bur. Once our laminectomy was complete, we focused on the right side, the patient's sympt omatic side and performed a very minor L4 medial facetectomy. The operative bed was quite scarred in from the prior surgery. So, once all of our bony decompression had been completed, we removed the r emainder of the ligamentum flavum and scar tissue by bluntly and carefully dissecting it up off the t hecal sac and L5 nerve root and then removing it with Kerrison rongeurs. At no point in the surgery, did we create a durotomy or appreciate a CSF leak. Ultimately, we were able to clear out all the ol d ligamentum flavum and scar tissue and could easily see the thecal sac and the L5 nerve root as it t ook off the axilla and descended down to the next spinal segment. We gently pushed the neural elemen ts to side and found the L4-5 disk space and removed a bit of the bulging disk material as well. We performed hemostasis and irrigated out the operative bed with copious antibiotic solution. The theca l sac and the right L5 nerve root were very clearly visualized both directly, and we probed, and ther e was no active compression whatsoever of the L5 nerve. We irrigated out once more, placed a #7 flat SHON in the operative bed, proceeded with closure. We closed the fascial and muscle layers with 0 pop -off Vicryl suture. We irrigated the suprafascial compartment once more with antibiotic to prevent i nfection. We injected the muscles with half plain Marcaine to assist with postoperative pain control . We closed the dermis with inverted 2-0 pop-off Vicryl suture. We used Dermabond to close the skin . Once this dried, sterile dressings were placed. The drainage tube was stitched and hooked up to a bulb to compression. We removed the drapes and returned the patient to the supine positi on on a gurney where he was reversed from anesthesia and extubated without difficulty. All counts we re correct. I was there for the entire procedure. There were no immediate surgical anesthetic compl ications. All neuromonitoring was stable during the procedure. The patient was taken to recovery ar ea once he was found to be in stable medical and neurologic condition. I updated his and family regarding the details of the procedure, and they were most grateful for the care he had received. Anni lopez are to return to his floor bed for standard postoperative spine care. He will hopefully be able to go home as soon as his pain is controlled. IMPLANTS: None. COMPLICATIONS: None. /[id number]
== END 2018-02-21 13:10 | disposition home or self-care (01) | DRG 516 ==
LOC: OBSVTOIN 11:02 → F3N 13:16
PROVIDERS: ADMIT Internal Medicine; ATTEND Internal Medicine
DX: M51.16 Intervertebral disc disorders with radiculopathy, lumbar region (principal); F11.20 Opioid dependence, uncomplicated; M48.061 Spinal stenosis, lumbar region without neurogenic claudication; E86.9 Volume depletion, unspecified; G89.29 Other chronic pain; I25.10 Atherosclerotic heart disease of native coronary artery without angina pectoris; E11.65 Type 2 diabetes mellitus with hyperglycemia; I95.89 Other hypotension; I10 Essential (primary) hypertension; M51.26 Other intervertebral disc displacement, lumbar region; M43.16 Spondylolisthesis, lumbar region; Z95.1 Presence of aortocoronary bypass graft; Z95.5 Presence of coronary angioplasty implant and graft; Z79.84 Long term (current) use of oral hypoglycemic drugs
CPT/HCPCS: 96374; 97116-GP; 97161-GP; 97166-GO; 97530-GO; 97530-GP; 97535-GO; G8978-GP-CJ; G8979-GP-CI; G8980-GP-CI; G8987-GO-CK; G8988-GO-CI; J0171; J0690; J1100; J1170; J1650; J1815; J2270; J2370; J2405; J2704; J3010; J3301